=== PATIENT | male | born 1960 | race Caucasian/White ===

== ENCOUNTER → 2016-06-12 | Outpatient (REF) | payer MEDICARE ==
[~2016-06-12] MED LIST: /WARF25TA; ACET65TA; COUM10TA OR; ENOX40SY SC; FLECTOR; FLEXERIL; LISIPOW PO; LODINE PO; OMEP20TA7 OR; PRIL20CA; PRIN10TA; SERTRALINE PO; TYLETAB3; TYLETAB3 PO; ZOLO100T
[2016-06-12 13:00] LABS: BASO % 0.8 % (0.0-1.0); EOS # 0.1 K/mm3 (0.0-0.50); LARGE UNSTAINED CELL # 0.1 K/mm3 (0.0-0.4); LARGE UNSTAINED CELL % 1.4 % (0.0-4.0); LYMPH # 1.1 K/mm3 (1.5-4.5); LYMPH % 18.8 % (24.0-44.0); MEAN CORPUSCULAR HGB CONC 35.5 g/dl (32.0-36.5); MEAN CORPUSCULAR VOLUME 93.1 fl (80.0-96.0); MONO # 0.3 K/mm3 (0.0-0.8); MONO % 6.2 % (0.0-5.0); NEUTROPHILS % 71.9 % (36.0-66.0); PLATELET COUNT, AUTOMATED 132 k/mm3 (150-450); WHITE BLOOD COUNT 5.6 K/mm3 (4.0-10.0)
[2016-06-12 13:12] LABS: ALBUMIN/GLOBULIN RATIO 1.21 (1.00-1.93); ALKALINE PHOSPHATASE 90 U/L (45-117); ALT/SGPT 26 U/L (12-78); ANION GAP 10 MEQ/L (8-16); AST/SGOT 20 U/L (15-37); BILIRUBIN,TOTAL 0.5 MG/DL (0.2-1.0); BLOOD UREA NITROGEN 16 MG/DL (7-18); CALCIUM LEVEL 8.9 MG/DL (8.5-10.1); CARBON DIOXIDE LEVEL 28 MEQ/L (21-32); CHLORIDE LEVEL 100 MEQ/L (98-107); CHOLESTEROL LEVEL 124 MG/DL (<200); GLOMERULAR FILTRATION RATE > 60.0 (>56); GLUCOSE, FASTING 94 MG/DL (70-105); POTASSIUM SERUM 4.1 MEQ/L (3.5-5.1); SODIUM LEVEL 138 MEQ/L (136-145); TOTAL PROTEIN 7.3 GM/DL (6.4-8.2); TRIGLYCERIDES LEVEL 118 MG/DL (<150)
== END ==
LOC: M SFHCADAM 10:04
PROVIDERS: ATTEND Physician Assistant Medical
DX: I10 Essential (primary) hypertension (principal); E78.1 Pure hyperglyceridemia; E03.9 Hypothyroidism, unspecified; E55.9 Vitamin D deficiency, unspecified

== ENCOUNTER 2016-07-05 18:27 | Inpatient (IN) | payer MEDICARE ==
[~2016-07-05] VITALS: Ht 185.4 cm; Wt 102.1 kg
[~2016-07-05 18:27] MED LIST changes: -AUGM875T27 PO; -COUM1TAB17 PO; -LEVO25TA5 PO; -LEVO88TA24 PO; -LISI10TA2 PO; -OMEP20CA3 PO; -OMEP40CA2 PO; -SERT-138 PO; -TYLETAB15 PO; -VITA100037 PO; -VITA100066 PO
[2016-07-05] MEDS ORDERED: LEVO25TA5 PO (18:37)
[2016-07-05] MEDS ORDERED: OMEP40CA2 PO (18:37)
[2016-07-05] MEDS ORDERED: VITA100037 PO (18:37)
[2016-07-05] MEDS ORDERED: TYLETAB15 PO ×2 (18:37→19:28)
[2016-07-05] MEDS ORDERED: MORPHINE 4 MG/ML 1ML SYRINGE IV ONE (19:00)
[2016-07-05] MEDS ORDERED: ONDANSETRON 4MG/2ML VIAL (J2405) IV ONE (19:00)
[2016-07-05] MEDS ORDERED: LEVO88TA24 PO (19:26)
[2016-07-05] MEDS ORDERED: VITA100066 PO (19:28)
[2016-07-05] MEDS ORDERED: AUGM875T27 PO (19:28)
[2016-07-05] MEDS ORDERED: SERT-138 PO (19:28)
[2016-07-05] MEDS ORDERED: OMEP20CA3 PO (19:28)
[2016-07-05] MEDS ORDERED: LISI10TA2 PO (19:28)
[2016-07-05 19:34] LABS: BASO % 0.4 % (0.0-1.0); EOS % 0.6 % (0.0-3.0); LARGE UNSTAINED CELL # 0.1 K/mm3 (0.0-0.4); LARGE UNSTAINED CELL % 1.6 % (0.0-4.0); LYMPH % 15.2 % (24.0-44.0); MEAN CORPUSCULAR HEMOGLOBIN 34.1 pg (27.0-33.0); MEAN CORPUSCULAR HGB CONC 36.3 g/dl (32.0-36.5); MONO # 0.4 K/mm3 (0.0-0.8); MONO % 5.6 % (0.0-5.0); NEUTROPHILS # 4.9 K/mm3 (1.8-7.7); NEUTROPHILS % 76.5 % (36.0-66.0); PLATELET COUNT, AUTOMATED 131 k/mm3 (150-450); WHITE BLOOD COUNT 6.4 K/mm3 (4.0-10.0)
[2016-07-05 19:56] LABS: ANION GAP 8 MEQ/L (8-16); BLOOD UREA NITROGEN 11 MG/DL (7-18); CARBON DIOXIDE LEVEL 30 MEQ/L (21-32); CHLORIDE LEVEL 101 MEQ/L (98-107); CREATININE FOR GFR 1.09 MG/DL (0.70-1.30); GLOMERULAR FILTRATION RATE > 60.0 (>56); GLUCOSE, FASTING 96 MG/DL (70-105); POTASSIUM SERUM 4.4 MEQ/L (3.5-5.1); SODIUM LEVEL 139 MEQ/L (136-145)
[2016-07-05] MEDS ORDERED: ACETAMINOPHEN TAB 650MG DOSE (2X325MG) PO PRN (20:00)
[2016-07-05] MEDS ORDERED: ONDANSETRON 4MG/2ML VIAL (J2405) IV PRN (20:00)
[2016-07-05] MEDS: ENOXAPARIN 100MG/1ML SYRINGE (J1650) SC SCH (20:50)
[2016-07-05 22:05] VITALS: BP 151/96
[2016-07-06] MEDS: ACETAMINOPH W/CODEINE #3 TAB UD PO PRN ×4 (00:43→16:58)
[2016-07-06] MEDS: LEVOTHYROXINE 0.088 MG TAB (88 MCG) PO SCH (06:50)
[2016-07-06 07:07] LABS: MEAN CORPUSCULAR HEMOGLOBIN 32.8 pg (27.0-33.0); MEAN CORPUSCULAR HGB CONC 35.1 g/dl (32.0-36.5); MEAN CORPUSCULAR VOLUME 93.6 fl (80.0-96.0); RED CELL DISTRIBUTION WIDTH 13.1 % (11.5-14.5)
--- NOTE | 2016-07-06 07:16 | IPNPDOC ---
Text Note Date of Service The patient was seen on 07/05/16. NOTE Briefly, this is a 56-year-old male with a past medical history of hypertension , GERD, osteoarthritis, hypothyroidism, and DVT/PE in September 2011 who presented initially to his primary care provider with a chief complaint of right upper extremity swelling and pain. The patient subsequently did have an ultrasound of the extremity done as an outpatient and this revealed a deep venous thrombosis. The patient was sent to the emergency department for further evaluation and management. At this time, the patient states that his right upper extremity has gotten progressively swollen and tender over the last few weeks. He denies any trauma to the arm or any other acute complaint. V/S: B/P: 125/92, HR: 88, RR: 66, O2: 99% on RA General: Awake, alert, oriented Head: Normocephalic, atraumatic Neck: No JVD CVS: Normal S1, S2 Pulmonary: There to auscultation bilaterally Abd: Soft, nontender, nondistended Extremities: Right upper extremity noted to be swollen extending from the proximal aspect of the forearm. Mild tenderness to deep palpation. Neurovascularly intact distally A/P RUE DVT Started on Lovenox SC BID Hypothyroidism Cont Levothyroxine GERD Cont PPI HTN, stable Cont current regimen Patient will be admitted to Dr. Malin's service. Please refer to the HPI, which will be uploaded shortly for further details. VS,Fishbone, I+O VS, Fishbone, I+O Laboratory Tests 07/05/16 19:17 Calcium Level 9.0, Red Blood Count 4.66, Mean Corpuscular Volume 94.0, Mean Corpuscular Hemoglobin 34.1 H, Mean Corpuscular Hemoglobin Concent 36.3, Red Cell Distribution Width 13.0, Neutrophils (%) (Auto) 76.5 H, Lymphocytes (%) ( Auto) 15.2 L, Monocytes (%) (Auto) 5.6 H, Eosinophils (%) (Auto) 0.6, Basophils (%) (Auto) 0.4, Neutrophils # (Auto) 4.9, Lymphocytes # (Auto) 1.0 L, Monocytes # (Auto) 0.4, Eosinophils # (Auto) 0.0, Basophils # (Auto) 0.0 Vital Signs Date Time Temp Pulse Resp B/P Pulse Ox O2 Delivery O2 Flow Rate FiO2 07/06/16 06:51 18 07/05/16 22:05 97.9 57 151/96 97 Room Air I&O- Last 24 Hours up to 6 AM 07/06/16 06:00 Intake Total 960 ml Output Total 350 ml Balance 610 ml SONI GODWIN MD Jul 06, 2016 07:16 SONI GODWIN MD Jul 06, 2016 07:16
[2016-07-06 07:18] LABS: ANION GAP 8 MEQ/L (8-16); BLOOD UREA NITROGEN 12 MG/DL (7-18); CALCIUM LEVEL 8.1 MG/DL (8.5-10.1); CARBON DIOXIDE LEVEL 25 MEQ/L (21-32); CHLORIDE LEVEL 106 MEQ/L (98-107); CREATININE FOR GFR 1.09 MG/DL (0.70-1.30); GLOMERULAR FILTRATION RATE > 60.0 (>56); GLUCOSE, FASTING 90 MG/DL (70-105); POTASSIUM SERUM 3.8 MEQ/L (3.5-5.1); SODIUM LEVEL 139 MEQ/L (136-145)
[2016-07-06 08:00] VITALS: BP 123/75
--- NOTE | 2016-07-06 08:58 | IPNPDOC ---
Subjective Date Seen The patient was seen on 07/06/16. Subjective Chief Complaint/HPI The patient is a 56-year-old male admitted with a reason for visit of DVT. Events since last encounter Pt this morning c/o loose stools, watery, denies abdominal pain, bloating. Has been on Augmentin per UC for URI/bronchitis and loose stools started a few days after starting the medication. He took a dose yesterday, has only one dose left to take of a 10 day regimen. He is having mtp stools daily. General: Denies: Fatigue Constitutional: Denies: Chills, Fever Skin: Denies: Lesions, Rash Pulmonary: Denies: Cough, Dyspnea Cardiovascular: Denies: Chest Pain, Palpitations Gastrointestinal: Reports: Diarrhea, Denies: Nausea, Vomiting Genitourinary: Denies: Dysuria Musculoskeletal: Reports: Other Symptoms (Pain, redness to RUE, antecubital.) Objective Physical Examination General Exam: Positive: Alert, No Acute Distress ENT Exam: Positive: Mucous membr. moist/pink Chest Exam: Positive: Clear to auscultation, Normal air movement Heart Exam: Positive: Normal S1, Normal S2, Rate Normal Abdomen Exam: Positive: Normal bowel sounds, Soft, Negative: Tenderness Extremity Exam: Positive: Tenderness (RUE ant arm with redness, pain, mild swelling), Negative: Edema (BLE) Psych Exam: Positive: Mental status NL, Mood NL Assessment /Plan Problems (1) DVT (deep venous thrombosis) Status: Acute Discussed With: Patient Problem Specific Plan: Monitor Clinically, Repeat Labs Problem Text: US confirms DVT of distal, mid, prox basilic vein and portion of the axillary - Extensive DVT- prior h/o of DVT/PE in 09/27 with Neg hypercoag work up, treated with blood thinners x 1. Currently started on lovenox SQ BID, I would recommend Coumadin for treatment buttermaker, will address with attending. hypercoag work up ordered on admission, results pending. (2) Hypertension Status: Chronic Response to Treatment: Stable Problem Specific Plan: Monitor Clinically Problem Text: Cont HD lisinopril/HCTZ. (3) Right arm pain Status: Chronic Response to Treatment: Stable Problem Specific Plan: Monitor Clinically Problem Text: Assoc with traumatic fall, On Tyl #4 at home, not available inpt , using Tyl # 3. (4) Alcohol abuse Status: Chronic Response to Treatment: Stable Problem Specific Plan: Monitor Clinically Problem Text: H/o abuse, currently drinking 2-3 beers nightly, counseled on symptoms assoc with withdrawal. (5) MDD (major depressive disorder) Status: Chronic Response to Treatment: Stable Problem Specific Plan: Monitor Clinically Problem Text: Cont Zoloft 100 mg daily. (6) Diarrhea Status: Acute Problem Specific Plan: Monitor Clinically Problem Text: Pt completed Augmentin, GI panel pending, I suspect the cause of his loose stools are assoc with the medication. Await results, consider Immodium if results Neg. Plan/VTE VTE Prophylaxis Ordered?: Yes Plan Family Medicine Attending Note: Patient seen and examined; I d/w THERESA Cruz and I agree with her note above. No further diarrhea since receiving immodium ; GI panel is negative. Will restart coumadin today and plan to discharge home tomorrow with coumadin and lovenox until he is therapeutic x2 days. (KES) VS, I&O, 24H, Fishbone Vital Signs/I&O Vital Signs Date Time Temp Pulse Resp B/P Pulse Ox O2 Delivery O2 Flow Rate FiO2 07/06/16 07:21 18 07/05/16 22:05 97.9 57 151/96 97 Room Air I&O- Last 24 Hours up to 6 AM 07/06/16 06:00 Intake Total 960 ml Output Total 350 ml Balance 610 ml Laboratory Data 24H LABS Laboratory Tests 2 07/05/16 19:17: Activated Partial Thromboplast Time 25.8L, Anion Gap 8, White Blood Count 6.4, Red Blood Count 4.66, Hemoglobin 15.9, Hematocrit 43.8, Mean Corpuscular Volume 94.0, Mean Corpuscular Hemoglobin 34.1H, Mean Corpuscular Hemoglobin Concent 36.3, Red Cell Distribution Width 13.0, Platelet Count 131L, Neutrophils (%) ( Auto) 76.5H, Lymphocytes (%) (Auto) 15.2L, Monocytes (%) (Auto) 5.6H, Eosinophils (%) (Auto) 0.6, Basophils (%) (Auto) 0.4, Neutrophils # (Auto) 4.9, Lymphocytes # (Auto) 1.0L, Monocytes # (Auto) 0.4, Eosinophils # (Auto) 0.0, Basophils # (Auto) 0.0, Blood Urea Nitrogen 11, Creatinine 1.09, Sodium Level 139, Potassium Level 4.4, Chloride Level 101, Carbon Dioxide Level 30, Calcium Level 9.0, Glomerular Filtration Rate > 60.0, Large Unclassified Cells # 0.1, Large Unclassified Cells % 1.6, Prothromb Time International Ratio 1.00, Prothrombin Time 13.3 07/06/16 06:38: Anion Gap 8, Blood Urea Nitrogen 12, Creatinine 1.09, Sodium Level 139, Potassium Level 3.8, Chloride Level 106, Carbon Dioxide Level 25, Calcium Level 8.1L, Glomerular Filtration Rate > 60.0, Magnesium Level 2.0 CBC/BMP Laboratory Tests 07/05/16 19:17 Calcium Level 9.0, Red Blood Count 4.66, Mean Corpuscular Volume 94.0, Mean Corpuscular Hemoglobin 34.1 H, Mean Corpuscular Hemoglobin Concent 36.3, Red Cell Distribution Width 13.0, Neutrophils (%) (Auto) 76.5 H, Lymphocytes (%) ( Auto) 15.2 L, Monocytes (%) (Auto) 5.6 H, Eosinophils (%) (Auto) 0.6, Basophils (%) (Auto) 0.4, Neutrophils # (Auto) 4.9, Lymphocytes # (Auto) 1.0 L, Monocytes # (Auto) 0.4, Eosinophils # (Auto) 0.0, Basophils # (Auto) 0.0 07/06/16 06:38 Calcium Level 8.1 L, Red Blood Count 4.38, Mean Corpuscular Volume 93.6, Mean Corpuscular Hemoglobin 32.8, Mean Corpuscular Hemoglobin Concent 35.1, Red Cell Distribution Width 13.1 Microbiology Microbiology 07/06/16 Gastrointestinal Tract Panel (PCR), Received Pending RAN PARRA PA-C Jul 06, 2016 08:58 ROCK WILSON MD Jul 06, 2016 16:46
[2016-07-06] MEDS: hydroCHLOROthiazide 12.5 MG CAPSULE PO SCH (09:55)
[2016-07-06] MEDS: LISINOPRIL 10 MG TAB PO SCH (09:55)
[2016-07-06] MEDS: OMEPRAZOLE 20 MG CAP PO SCH (09:55)
[2016-07-06] MEDS: SERTRALINE 100 MG TAB PO SCH (09:56)
[2016-07-06] MEDS: VITAMIN D 1,000 INTERNATIONAL UNITS TABLET PO SCH (09:56)
[2016-07-06] MEDS: ENOXAPARIN 100MG/1ML SYRINGE (J1650) SC SCH ×2 (09:56→21:29)
[2016-07-06] MEDS ORDERED: LOPERAMIDE 2 MG CAP PO PRN (13:45)
[2016-07-06 16:00] VITALS: BP 148/90
[2016-07-06] MEDS ORDERED: WARFARIN SOD 5 MG TAB PO SCH (17:00)
[2016-07-06 19:30] VITALS: BP 124/78
--- NOTE | 2016-07-06 20:16 | HPEPDOC ---
General Date of Admission Jul 05, 2016 at 19:53 Primary Care Physician: RAN PARRA PA-C Attending Physician: ROCK MALIN MD Chief Complaint The patient is a 56-year-old male admitted with a reason for visit of DVT. Source: Patient Exam Limitations: No limitations History of Present Illness 56-year-old male with a past medical history of hypertension, GERD, osteoarthritis, hypothyroidism, and DVT/PE in September 2011 who presented initially to his primary care provider with a chief complaint of right upper extremity swelling and pain. The patient subsequently did have an ultrasound of the extremity done as an outpatient and this revealed a deep venous thrombosis. The patient was sent to the emergency department for further evaluation and management. At this time, the patient states that his right upper extremity has gotten progressively swollen and tender over the last few weeks. He denies any trauma to the arm or any other acute complaint. He also denies any fevers, chills, chest pain, shortness of breath, palpitations, abdominal pain, or any nausea/vomiting/diarrhea. In the ER, a hypercoagulable workup was ordered, and the patient has been started on subcutaneous Lovenox BID at this time. The patient will be admitted under the service of Dr. Malin of the [facility], we will begin to follow the patient on 07/06/16 at 7 AM. Home Medications Scheduled (Tylenol/Codeine #4 300-60 mg) 1 Tab Tab 1 TAB PO QID (Reported) (Lisinopril/Hydrochlorothi 10-12.5 mg) 1 Tab Tab 1 TAB PO DAILY (Reported) Amoxicillin/Clavulanate Potas (Augmentin 875-125 mg) 1 Tab Tab 875 MG PO BID ( Reported) FILLED 06/27/16 FOR 10 DAYS Cholecalciferol (Vitamin D) 1,000 Unit Tab 1,000 UNIT PO DAILY (Reported) Levothyroxine Sodium (Levoxyl) 88 Mcg Tab 88 MCG PO DAILY (Reported) TAKES WHEN HE GETS UP IN THE NIGHT TO USE RESTROOM Omeprazole (Omeprazole) 20 Mg Cap 20 MG PO DAILY (Reported) Sertraline HCl (Sertraline HCl) 100 Mg Tab 100 MG PO DAILY (Reported) Allergies Coded Allergies: No Known Allergies (Verified Allergy, Unknown, 04/07/09) Past Medical History Medical History As noted in HPI. Surgical History Right hip total arthroplasty, repair of tendons and right arm after a fall and traumatic injury in 1998. Family History FATHER: 82 YRS, COPD MOTHER: 70 YRS, LUNG CANCER, DM SIBLINGS: BROTHER - DM2 SISTER COPD SON(S): ALIVE, ESTRANGED DAUGHTER(S): ALIVE, ESTRANGED 1 BROTHER(S) , 2 SISTER(S) . 1 SON(S) , 1 DAUGHTER(S) . NO FH COLORECTAL, PROSTATE CA. Social History * Smoker: former Smoker Alcohol: occationally Drugs: denies Review of Symptoms Other systems 10 point review of systems negative unless otherwise specified in HPI. Physical Examination General Exam: Positive: Alert, No Acute Distress ENT Exam: Positive: Atraumatic, Mucous membr. moist/pink Chest Exam: Positive: Clear to auscultation, Normal air movement Heart Exam: Positive: Normal S1, Normal S2, Rate Normal Abdomen Exam: Positive: Normal bowel sounds, Soft, Negative: Tenderness Extremity Exam: Positive: Edema (BLE), Tenderness (Right upper extremity noted to be swollen extending from the proximal aspect of the forearm. Mild tenderness to deep palpation. Neurovascularly intact distally) Psych Exam: Positive: Mental status NL, Mood NL, Oriented x 3 Vital Signs Vital Signs Date Time Temp Pulse Resp B/P Pulse Ox O2 Delivery O2 Flow Rate FiO2 07/06/16 17:50 18 07/06/16 16:58 Room Air 07/06/16 16:00 97.6 102 148/90 97 Laboratory Data Labs 24H Laboratory Tests 2 07/06/16 06:38: Anion Gap 8, Blood Urea Nitrogen 12, Creatinine 1.09, Sodium Level 139, Potassium Level 3.8, Chloride Level 106, Carbon Dioxide Level 25, Calcium Level 8.1L, Glomerular Filtration Rate > 60.0, Magnesium Level 2.0 CBC/BMP Laboratory Tests 07/06/16 06:38 Calcium Level 8.1 L, Red Blood Count 4.38, Mean Corpuscular Volume 93.6, Mean Corpuscular Hemoglobin 32.8, Mean Corpuscular Hemoglobin Concent 35.1, Red Cell Distribution Width 13.1 Microbiology Microbiology 07/06/16 Gastrointestinal Tract Panel (PCR) - Final, Complete Plan / VTE VTE Prophylaxis Ordered?: Yes (On Lovenox SC BID for DVT) Plan Plan RUE DVT U/S of the RUE notable for DVT of distal, mid, prox basilic vein and portion of the axillary Of note, the patient did have a PE/DVT in September 2011 at which time he was started on Coumadin for a one-year duration, evidently a hypercoagulable workup at that time was noted to be negative. Hypercoagulable workup has been ordered here in the ER Started on Lovenox SC BID, we will defer the choice of long-term anticoagulation to the patient's primary team We will continue to monitor his condition here Hypothyroidism Cont Levothyroxine GERD Cont PPI HTN, stable Cont current regimen Depression Continue Zoloft DVT prophylaxis-already on Lovenox subcutaneously twice a day for treatment of DVT Patient will be admitted to Dr. Malin's service, who will begin to follow the patient on 07/06/16 at 7 AM. SONI GODWIN MD Jul 06, 2016 20:16
[2016-07-07] VITALS: BP 120/79
[2016-07-07] MEDS: ACETAMINOPH W/CODEINE #3 TAB UD PO PRN ×2 (00:15→08:36)
[2016-07-07] MEDS: LEVOTHYROXINE 0.088 MG TAB (88 MCG) PO SCH (06:25)
[2016-07-07] MEDS: OMEPRAZOLE 20 MG CAP PO SCH (06:29)
[2016-07-07 07:31] LABS: INR 0.93
[2016-07-07 07:40] LABS: MEAN CORPUSCULAR HEMOGLOBIN 32.7 pg (27.0-33.0); MEAN CORPUSCULAR HGB CONC 34.7 g/dl (32.0-36.5); RED CELL DISTRIBUTION WIDTH 13.2 % (11.5-14.5); WHITE BLOOD COUNT 5.4 K/mm3 (4.0-10.0)
[2016-07-07 08:00] VITALS: BP 109/70
[2016-07-07 08:02] LABS: ANION GAP 8 MEQ/L (8-16); BLOOD UREA NITROGEN 11 MG/DL (7-18); CALCIUM LEVEL 8.3 MG/DL (8.5-10.1); CARBON DIOXIDE LEVEL 26 MEQ/L (21-32); CHLORIDE LEVEL 104 MEQ/L (98-107); CREATININE FOR GFR 1.01 MG/DL (0.70-1.30); GLOMERULAR FILTRATION RATE > 60.0 (>56); GLUCOSE, FASTING 102 MG/DL (70-105); POTASSIUM SERUM 3.6 MEQ/L (3.5-5.1); SODIUM LEVEL 138 MEQ/L (136-145)
[2016-07-07] MEDS ORDERED: COUM1TAB17 PO (08:16)
[2016-07-07 08:28] VITALS: BP 109/70
[2016-07-07] MEDS: LISINOPRIL 10 MG TAB PO SCH (08:28)
[2016-07-07] MEDS: hydroCHLOROthiazide 12.5 MG CAPSULE PO SCH (08:29)
[2016-07-07] MEDS: SERTRALINE 100 MG TAB PO SCH (08:29)
[2016-07-07] MEDS: VITAMIN D 1,000 INTERNATIONAL UNITS TABLET PO SCH (08:29)
[2016-07-07] MEDS: ENOXAPARIN 100MG/1ML SYRINGE (J1650) SC SCH (08:30)
[2016-07-07] MEDS ORDERED: INFLUENZA QUADRIVALENT PF VACCINE 0.5ML SYRINGE/VIAL (90686) IM SCH (09:00)
--- NOTE | 2016-07-07 09:18 | DSES ---
DATE OF ADMISSION: 07/05/2016 DATE OF DISCHARGE: 07/07/2016 PRIMARY CARE PROVIDER: THERESA Cruz ATTENDING PHYSICIAN: Dr. Marjorie Malin HISTORY: This is a 56-year-old male patient who presented to my office at [facility] in [place], [place] with his and showed me his right upper arm, which appeared red, swollen and inflamed with a reported history that this had been red, swollen and inflamed for approximately two weeks and worsening at that time. He was sent for a stat ultrasound, as he was not willing to go through the emergency room for further evaluation. This ultrasound confirmed a suspicion of a right upper extremity deep vein thrombosis (DVT) and the patient was subsequently advised to go to the emergency room for admission. He denied any chest pain, any shortness of breath, nausea, vomiting, or diarrhea. He otherwise is asymptomatic. He does have a previous history of a DVT in that same right upper extremity back in September 2011. This was associated with a pulmonary embolus at that time as well. The patient was admitted to the hospital. He was started on therapeutic doses of Lovenox 100 mg subcutaneously twice a day. He was started on Coumadin last night, as he has been on this in the past and tolerated it well. Otherwise, he has remained medically stable. He did have a couple of episodes of loose stools, although he just completed Augmentin. GI panel was obtained, which was negative. He has not taken any further doses of the Augmentin during his hospitalization and the stools are improved this morning, according to the patient. He is eager to return home. We have sent in Lovenox and verified insurance coverage. I will see him in the office on Sunday for Coumadin check. We have reviewed the risks and benefits associated with Coumadin, as well as the need for treatment and the risks associated with lack of treatment. He expressed understanding. He feels comfortable administering the Lovenox doses for as long as needed. Nursing is going to perform additional teaching this morning. DISCHARGE DIAGNOSES: 1. Right upper extremity deep vein thrombosis (DVT). 2. Hypertension. 3. Chronic right arm pain. 4. History of alcohol abuse. 5. Major depressive disorder. 6. Diarrhea. DISCHARGE MEDICATIONS: - Coumadin 5 mg daily - Lovenox 100 mg subcutaneously twice a day - Lisinopril/hydrochlorothiazide 12/28.5 one tablet daily - omeprazole 20 mg daily - sertraline 100 mg daily - Levoxyl 88 mcg daily - vitamin D 1000 units daily - Tylenol with codeine #4 one tablet four times daily as needed for pain DISCHARGE PLAN: Followup with Coumadin check, PT/INR on 07/10/2016. His activity should be as tolerated. Diet should be regular. MTDD
== END 2016-07-07 09:30 | disposition home or self-care (01) | DRG 301 ==
LOC: M ED 19:22 → M ED INP 19:53 → M PED 22:06
PROVIDERS: ADMIT Internal Medicine; ATTEND Family Medicine
DX: I82.611 Acute embolism and thrombosis of superficial veins of right upper extremity (principal); I10 Essential (primary) hypertension; K21.9 Gastro-esophageal reflux disease without esophagitis; E03.9 Hypothyroidism, unspecified; I82.A11 Acute embolism and thrombosis of right axillary vein; F32.9 Major depressive disorder, single episode, unspecified; R19.7 Diarrhea, unspecified; F10.10 Alcohol abuse, uncomplicated; Z79.01 Long term (current) use of anticoagulants; Z79.899 Other long term (current) drug therapy; Z86.718 Personal history of other venous thrombosis and embolism; Z86.711 Personal history of pulmonary embolism; Z83.3 Family history of diabetes mellitus; Z80.1 Family history of malignant neoplasm of trachea, bronchus and lung; Z83.6 Family history of other diseases of the respiratory system; Z80.42 Family history of malignant neoplasm of prostate; Z87.891 Personal history of nicotine dependence

== ENCOUNTER → 2016-07-05 | Outpatient (CLI) | payer MEDICARE ==
[~2016-07-05] MED LIST changes: +AUGM875T27 PO; +COUM1TAB17 PO; +LEVO25TA5 PO; +LEVO88TA24 PO; +LISI10TA2 PO; +OMEP20CA3 PO; +OMEP40CA2 PO; +SERT-138 PO; +TYLETAB15 PO; +VITA100037 PO; +VITA100066 PO
--- NOTE | 2016-07-05 17:54 | REP ---
DEEP VENOUS ULTRASONOGRAPHY RIGHT UPPER EXTREMITY: REASON: Pain and swelling. TECHNIQUE: Multiple ultrasonographic images of the deep venous structures of the right upper extremity were obtained in the longitudinal and transverse scan planes along with color Doppler imaging and Doppler interrogative techniques with augmentation. Abnormal echogenic material is seen in the proximal, mid, and distal basilic vein including a portion of the axillary vein. IMPRESSION: There is evidence of a deep vein thrombosis of the right upper extremity. Signed by Saeed Davis DO 07/07/2016 03:42 P
== END ==
LOC: M RAD 16:20
PROVIDERS: ATTEND Physician Assistant Medical
DX: M79.601 Pain in right arm (principal)

== ENCOUNTER → 2016-12-06 | Outpatient (REF) | payer MEDICARE ==
[~2016-12-06] MED LIST changes: +AUGM875T28 PO; +COUM1TAB17 PO; +LEVO25TA5 PO; +LEVO88TA24 PO; +LISI10TA2 PO; +OMEP20CA3 PO; +OMEP40CA2 PO; +SERT-138 PO; +TYLETAB15 PO; +VITA100066 PO; +VITA100067 PO
[2016-12-06 13:57] LABS: FREE T4 1.15 NG/DL (0.76-1.46)
== END ==
LOC: M SFHCADAM 08:22
PROVIDERS: ATTEND Physician Assistant Medical
DX: E03.9 Hypothyroidism, unspecified (principal)

== ENCOUNTER → 2017-02-12 | Outpatient (REF) | payer MEDICARE ==
[2017-02-12 13:07] LABS: BASO # 0.1 10^3/uL (0.0-0.2); BASO % 1.1 % (0.0-1.0); EOS # 0.1 10^3/uL (0.0-0.50); EOS % 1.5 % (0.0-3.0); IMMATURE GRANULOCYTE % 1.7 % (0-0); LYMPH # 1.4 10^3/uL (1.5-4.5); LYMPH % 26.3 % (24.0-44.0); MEAN CORPUSCULAR HEMOGLOBIN 32.8 pg (27.0-33.0); MEAN CORPUSCULAR HGB CONC 34.3 g/dl (32.0-36.5); MEAN CORPUSCULAR VOLUME 95.5 fl (80.0-96.0); MONO # 0.4 10^3/uL (0.0-0.8); MONO % 7.4 % (0.0-5.0); NEUTROPHILS # 3.3 10^3/uL (1.8-7.7); PLATELET COUNT, AUTOMATED 149 10^3/uL (150-450); RED CELL DISTRIBUTION WIDTH 13.2 % (11.5-14.5); WHITE BLOOD COUNT 5.4 10^3/uL (4.0-10.0)
[2017-02-12 13:30] LABS: ALBUMIN 3.8 GM/DL (3.2-5.2); ALBUMIN/GLOBULIN RATIO 1.27 (1.00-1.93); ALKALINE PHOSPHATASE 97 U/L (45-117); ALT/SGPT 18 U/L (12-78); ANION GAP 7 MEQ/L (8-16); AST/SGOT 14 U/L (7-37); BILIRUBIN,TOTAL 0.3 MG/DL (0.2-1.0); BLOOD UREA NITROGEN 17 MG/DL (7-18); CARBON DIOXIDE LEVEL 28 MEQ/L (21-32); CHLORIDE LEVEL 106 MEQ/L (98-107); CHOLESTEROL LEVEL 131 MG/DL (<200); CREATININE FOR GFR 1.13 MG/DL (0.70-1.30); FREE T4 0.99 NG/DL (0.76-1.46); GLOMERULAR FILTRATION RATE > 60.0 (>56); GLUCOSE, FASTING 94 MG/DL (70-105); POTASSIUM SERUM 4.7 MEQ/L (3.5-5.1); SODIUM LEVEL 141 MEQ/L (136-145); TOTAL PROTEIN 6.8 GM/DL (6.4-8.2); TRIGLYCERIDES LEVEL 104 MG/DL (<150)
== END ==
LOC: M SFHCADAM 08:57
PROVIDERS: ATTEND Physician Assistant Medical
DX: F32.9 Major depressive disorder, single episode, unspecified (principal); E78.1 Pure hyperglyceridemia; E55.9 Vitamin D deficiency, unspecified; D69.6 Thrombocytopenia, unspecified; Z79.899 Other long term (current) drug therapy

== ENCOUNTER → 2017-02-13 | Outpatient (REF) | payer MEDICARE ==
[2017-02-13 12:51] LABS: MEAN CORPUSCULAR HEMOGLOBIN 32.5 pg (27.0-33.0); MEAN CORPUSCULAR HGB CONC 35.2 g/dl (32.0-36.5); MEAN CORPUSCULAR VOLUME 92.1 fl (80.0-96.0); PLATELET COUNT, AUTOMATED 144 10^3/uL (150-450); RED CELL DISTRIBUTION WIDTH 13.1 % (11.5-14.5); WHITE BLOOD COUNT 5.5 10^3/uL (4.0-10.0)
[2017-02-13 13:24] LABS: PERCENT SATURATION 19.6 % (19.7-50.0)
== END ==
LOC: M LAB REF 12:04 → M SFHCADAM 12:04
PROVIDERS: ATTEND Physician Assistant Medical
DX: D64.9 Anemia, unspecified (principal); F32.9 Major depressive disorder, single episode, unspecified; E78.1 Pure hyperglyceridemia; E55.9 Vitamin D deficiency, unspecified

== ENCOUNTER → 2017-03-26 | Outpatient (CLI) | payer MEDICARE | LOC: M ADAMS 15:53 | DX: M25.552 Pain in left hip (principal); M25.551 Pain in right hip; M25.78 Osteophyte, vertebrae; M41.26 Other idiopathic scoliosis, lumbar region; Z96.641 Presence of right artificial hip joint | CPT/HCPCS: 72110 ==

== ENCOUNTER → 2017-07-30 | Outpatient (CLI) | payer MEDICARE ==
[2017-07-30 10:06] LABS: BASO % 0.6 % (0.0-1.0); EOS # 0.1 10^3/uL (0.0-0.50); HEMOGLOBIN 14.3 g/dl (13.5-17.5); IMMATURE GRANULOCYTE % 1.9 % (0-3.0); LYMPH # 0.9 10^3/uL (1.5-4.5); LYMPH % 19.2 % (24.0-44.0); MEAN CORPUSCULAR HEMOGLOBIN 32.6 pg (27.0-33.0); MEAN CORPUSCULAR HGB CONC 34.9 g/dl (32.0-36.5); MEAN CORPUSCULAR VOLUME 93.6 fl (80.0-96.0); MONO # 0.4 10^3/uL (0.0-0.8); MONO % 8.1 % (0.0-5.0); NEUTROPHILS # 3.4 10^3/uL (1.8-7.7); NEUTROPHILS % 69.2 % (36.0-66.0); PLATELET COUNT, AUTOMATED 112 10^3/uL (150-450); RED BLOOD COUNT 4.38 10^6/uL (4.30-6.10); RED CELL DISTRIBUTION WIDTH 13.3 % (11.5-14.5); WHITE BLOOD COUNT 4.8 10^3/uL (4.0-10.0)
[2017-07-30 10:45] LABS: ALBUMIN 3.8 GM/DL (3.2-5.2); ALBUMIN/GLOBULIN RATIO 1.15 (1.00-1.93); ALKALINE PHOSPHATASE 97 U/L (45-117); ALT/SGPT 27 U/L (12-78); ANION GAP 8 MEQ/L (8-16); AST/SGOT 29 U/L (7-37); BILIRUBIN,TOTAL 0.5 MG/DL (0.2-1.0); BLOOD UREA NITROGEN 15 MG/DL (7-18); CARBON DIOXIDE LEVEL 26 MEQ/L (21-32); CHLORIDE LEVEL 106 MEQ/L (98-107); CHOLESTEROL LEVEL 121 MG/DL (<200); CHOLESTEROL RISK RATIO 1.406 (<5); CREATININE FOR GFR 0.98 MG/DL (0.70-1.30); FERRITIN 209 NG/ML (26-388); GLOMERULAR FILTRATION RATE > 60.0 (>56); GLUCOSE, FASTING 87 MG/DL (70-100); HDL CHOLESTEROL 86 MG/DL (>40); IRON (FE) 56 UG/DL (65-175); LDL CHOLESTEROL 26.6 MG/DL (<100); NON-HDL-C 35 MG/DL; PERCENT SATURATION 21.9 % (19.7-50.0); POTASSIUM SERUM 4.5 MEQ/L (3.5-5.1); SODIUM LEVEL 140 MEQ/L (136-145); TOTAL IRON BINDING CAPACITY 256 UG/DL (250-450); TOTAL PROTEIN 7.1 GM/DL (6.4-8.2); TRIGLYCERIDES LEVEL 42 MG/DL (<150)
== END ==
LOC: M LAB 09:27
DX: E55.9 Vitamin D deficiency, unspecified (principal); E78.1 Pure hyperglyceridemia; I10 Essential (primary) hypertension; D50.9 Iron deficiency anemia, unspecified
CPT/HCPCS: 83550

== ENCOUNTER → 2017-07-30 | Outpatient (REF) | payer MEDICARE | LOC: M SFHCADAM 07:31 | DX: E55.9 Vitamin D deficiency, unspecified (principal); I10 Essential (primary) hypertension; D50.9 Iron deficiency anemia, unspecified; E78.1 Pure hyperglyceridemia ==

== ENCOUNTER → 2018-08-02 | Outpatient (REF) | payer MEDICARE ==
[~2018-08-02] MED LIST changes: -/WARF25TA; +COUM1TAB18; -ENOX40SY SC; +LOVE1INJ SC
[2018-08-02 12:52] LABS: BASO % 0.6 % (0.0-1.0); EOS % 0.5 % (0.0-3.0); HEMATOCRIT 43.7 % (42.0-52.0); LYMPH # 0.8 10^3/uL (1.5-4.5); LYMPH % 12.9 % (24.0-44.0); MEAN CORPUSCULAR HEMOGLOBIN 33.3 pg (27.0-33.0); MEAN CORPUSCULAR HGB CONC 34.3 g/dl (32.0-36.5); MEAN CORPUSCULAR VOLUME 96.9 fl (80.0-96.0); MONO # 0.4 10^3/uL (0.0-0.8); MONO % 6.7 % (0.0-5.0); NEUTROPHILS # 4.9 10^3/uL (1.8-7.7); NEUTROPHILS % 77.7 % (36.0-66.0); PLATELET COUNT, AUTOMATED 130 10^3/uL (150-450); RED BLOOD COUNT 4.51 10^6/uL (4.30-6.10); WHITE BLOOD COUNT 6.3 10^3/uL (4.0-10.0)
[2018-08-02 13:23] LABS: ALBUMIN 3.8 GM/DL (3.2-5.2); ALT/SGPT 18 U/L (12-78); BILIRUBIN,TOTAL 0.5 MG/DL (0.2-1.0); BLOOD UREA NITROGEN 17 MG/DL (7-18); CALCIUM LEVEL 8.8 MG/DL (8.5-10.1); CARBON DIOXIDE LEVEL 27 MEQ/L (21-32); CHLORIDE LEVEL 103 MEQ/L (98-107); CHOLESTEROL LEVEL 130 MG/DL (<200); CHOLESTEROL RISK RATIO 1.604 (<5); CREATININE FOR GFR 1.06 MG/DL (0.70-1.30); FERRITIN 163 NG/ML (26-388); FREE T4 0.99 NG/DL (0.76-1.46); GLOMERULAR FILTRATION RATE > 60.0 (>56); GLUCOSE, FASTING 100 MG/DL (70-100); HDL CHOLESTEROL 81 MG/DL (>40); IRON (FE) 79 UG/DL (65-175); LDL CHOLESTEROL 41 MG/DL (<100); NON-HDL-C 49 MG/DL; POTASSIUM SERUM 5.5 MEQ/L (3.5-5.1); SODIUM LEVEL 135 MEQ/L (136-145); TOTAL 25(OH) VITAMIN D 25.2 NG/ML (30.0-100.0); TOTAL PROTEIN 7.1 GM/DL (6.4-8.2); TRIGLYCERIDES LEVEL 42 MG/DL (<150)
== END ==
LOC: M SFHCADAM 07:37
PROVIDERS: ATTEND Physician Assistant Medical
DX: M15.9 Polyosteoarthritis, unspecified (principal); I10 Essential (primary) hypertension; E78.1 Pure hyperglyceridemia; E55.9 Vitamin D deficiency, unspecified; K21.9 Gastro-esophageal reflux disease without esophagitis; D50.9 Iron deficiency anemia, unspecified
CPT/HCPCS: 80053; 80061; 82306; 82728; 83540; 84439; 84443; 85025; G0463

== ENCOUNTER 2018-11-19 23:37 | Inpatient (IN) | payer MEDICARE ==
[~2018-11-19] VITALS: Ht 185.4 cm; Wt 89.2 kg
[~2018-11-19 23:37] MED LIST changes: +LISI10TA15 PO; -LISI10TA2 PO; -OMEP20CA3 PO; +OMEP20CA4 PO
[2018-11-20 00:08] LABS: BASO # 0.1 10^3/uL (0.0-0.2); BASO % 0.7 % (0.0-1.0); EOS % 0.4 % (0.0-3.0); HEMATOCRIT 39.7 % (42.0-52.0); HEMOGLOBIN 13.5 g/dl (13.5-17.5); LYMPH # 1.9 10^3/uL (1.5-5.0); LYMPH % 20.2 % (24.0-44.0); MEAN CORPUSCULAR HEMOGLOBIN 31.8 pg (27.0-33.0); MEAN CORPUSCULAR VOLUME 93.4 fl (80.0-96.0); MONO # 0.7 10^3/uL (0.0-0.8); MONO % 7.1 % (0.0-5.0); NEUTROPHILS # 6.6 10^3/uL (1.5-8.5); PLATELET COUNT, AUTOMATED 160 10^3/uL (150-450); RED BLOOD COUNT 4.25 10^6/uL (4.30-6.10); WHITE BLOOD COUNT 9.4 10^3/uL (4.0-10.0)
[2018-11-20 00:18] LABS: D-DIMER QUANT 1980.3 ng/ml (<500)
[2018-11-20 00:33] LABS: INR 0.94; PROTHROMBIN TIME 12.3 SECONDS (11.8-14.0)
[2018-11-20 00:34] LABS: PARTIAL THROMBOPLASTIN TIME 25.6 SECONDS (25.0-38.4)
[2018-11-20 01:05] LABS: ALT/SGPT 24 U/L (12-78); BILIRUBIN,DIRECT < 0.1 MG/DL (0.0-0.2); BILIRUBIN,TOTAL 0.4 MG/DL (0.2-1.0); BLOOD UREA NITROGEN 19 MG/DL (7-18); CALCIUM LEVEL 8.7 MG/DL (8.5-10.1); CARBON DIOXIDE LEVEL 20 MEQ/L (21-32); CHLORIDE LEVEL 105 MEQ/L (98-107); CK-MB VALUE MASS 1.9 NG/ML (<3.6); CPK CREATINE PHOSPHOKINASE 196 U/L (39-308); CREATININE FOR GFR 1.21 MG/DL (0.70-1.30); ETHYL ALCOHOL (ETHANOL) 0.273 % (0.000-0.010); GLOMERULAR FILTRATION RATE > 60.0 (>56); GLUCOSE, FASTING 75 MG/DL (70-100); LIPASE 120 U/L (73-393); MB/CK RELATIVE INDEX 0.97 (< OR =4); POTASSIUM SERUM 5.4 MEQ/L (3.5-5.1); SODIUM LEVEL 136 MEQ/L (136-145); TOTAL PROTEIN 7.6 GM/DL (6.4-8.2); TROPONIN I < 0.02 NG/ML (< 0.10)
[2018-11-20] MEDS ORDERED: ISOVUE-370 76% 100ML VIAL (Q9967) As Ordered ONE (01:13)
[2018-11-20] MEDS ORDERED: NS 1,000 ML IV ONE ×2 (01:15→03:00)
--- NOTE | 2018-11-20 02:06 | REPVR ---
EXAM: CT Head Without Contrast EXAM DATE/TIME: 11/20/2018 1:06 AM CLINICAL HISTORY: 58 years old, male; Dizziness; Additional info: Syncope, chest pain, epigastric pain, pos ddimer TECHNIQUE: Imaging protocol: Computed tomography of the head without contrast. Radiation optimization: All CT scans at this facility use at least one of these dose optimization techniques: automated exposure control; mA and/or kV adjustment per patient size (includes targeted exams where dose is matched to clinical indication); or iterative reconstruction. COMPARISON: No relevant prior studies available. FINDINGS: Brain: There is slight prominence of the peripheral sulci. Ventricles: Normal. No ventriculomegaly. Bones/joints: Unremarkable. No acute fracture. Sinuses: Visualized sinuses are unremarkable. No fluid levels. Mastoid air cells: Poor pneumatization of right mastoid air cells. Auditory system: Soft tissue stranding within the right middle ear cavity. Soft tissues: Unremarkable. IMPRESSION: 1. Question of minimal right otitis media with poor pneumatization of right mastoid air cells. 2. Minimal diffuse atrophy. 3. Otherwise negative noncontrast head CT. Electronically signed by: Kaiden Murrell On 11/20/2018 02:06:18 AM
--- NOTE | 2018-11-20 02:15 | REPVR ---
EXAM: CT Angiography Chest With Contrast EXAM DATE/TIME: 11/20/2018 1:06 AM CLINICAL HISTORY: 58 years old, male; Chest pain; Type not specified; Additional info: Syncope, chest pain, epigastric pain, pos ddimer TECHNIQUE: Imaging protocol: Computed tomographic angiography of the chest with intravenous contrast. 3D rendering: MIP reconstructed images were created and reviewed. Radiation optimization: All CT scans at this facility use at least one of these dose optimization techniques: automated exposure control; mA and/or kV adjustment per patient size (includes targeted exams where dose is matched to clinical indication); or iterative reconstruction. Contrast material: ISO; Contrast volume: 100 ml; Contrast route: AC; COMPARISON: CR PORTABLE CHEST X-RAY 11/20/2018 12:40 AM FINDINGS: Pulmonary arteries: The main pulmonary artery measures 29 mm. No pulmonary embolism is identified. Aorta: The ascending thoracic aorta measures 38 mm Lungs: Minimal scattered bullous change with slight interstitial prominence and bilateral lower lobe dependent atelectasis. Irregular lobular density in the left apex with surrounding stranding and spiculation measuring approximately 4.5 x 3.0 x 4.0 cm which is viewed with suspicion. Pleural space: Unremarkable. No pneumothorax. No pleural effusion. Heart: Coronary artery calcifications are present. Diaphragm: Calcification just beneath the left hemidiaphragm. Liver: Probable right hepatic cyst measuring 3.4 cm with Hounsfield measurement of -3. Lymph nodes: Unremarkable. No enlarged lymph nodes. Bones/joints: Mild superior endplate depression of T12 and slight wedge compression of the T4 which appear to be chronic. Soft tissues: Unremarkable. IMPRESSION: 1. Large lobular mass in the left apex with stranding and spiculation measuring 4.5 x 3.0 x 4.0 cm which is viewed with suspicion for malignancy. Highly suspicious nodule(s). Consider PET/CT, or tissue sampling.(Estrella et al., Fleischner Society, 2017). 2. Minimal scattered bullous change with slight interstitial prominence. 3. Otherwise negative CTA chest. No pulmonary embolism is identified. Electronically signed by: Kaiden Murrell On 11/20/2018 02:15:12 AM
--- NOTE | 2018-11-20 02:22 | REPVR ---
EXAM: CT Abdomen and Pelvis With Contrast EXAM DATE/TIME: 11/20/2018 1:06 AM CLINICAL HISTORY: 58 years old, male; Abdominal pain; Epigastric; Additional info: Syncope, chest pain, epigastric pain, pos ddimer TECHNIQUE: Imaging protocol: Computed tomography of the abdomen and pelvis with intravenous contrast. Radiation optimization: All CT scans at this facility use at least one of these dose optimization techniques: automated exposure control; mA and/or kV adjustment per patient size (includes targeted exams where dose is matched to clinical indication); or iterative reconstruction. Contrast material: ISO; Contrast volume: 100 ml; Contrast route: AC; COMPARISON: DX HIPS BILAT 2 VIEW W/ AP PELVIS 03/26/2017 3:51 PM FINDINGS: Lungs: Minimal bibasilar bullous change with slight interstitial prominence and minimal bilateral lower lobe atelectasis or scar. Liver: Hepatic cysts measuring up to 3.2 cm centrally with Hounsfield measurement of 0. Gallbladder and bile ducts: Normal. No calcified stones. No ductal dilation. Pancreas: Normal. No ductal dilation. Spleen: The spleen measures 14.6 cm. Calcification beneath the left hemidiaphragm and adjacent to the spleen. Adrenals: Normal. No mass. Kidneys and ureters: Normal. No hydronephrosis. Stomach and bowel: Unremarkable. No obstruction. No mucosal thickening. Appendix: No evidence of appendicitis. Intraperitoneal space: Unremarkable. No free air. No significant fluid collection. Vasculature: There is mild calcification of the abdominal aorta with extension into the iliac arteries. Lymph nodes: Unremarkable. No enlarged lymph nodes. Bladder: A normal appendix is seen adjacent to the bladder dome. Reproductive: Unremarkable as visualized. Bones/joints: Mild superior endplate depression of T12 which appears to be chronic. There is degenerative disc change at L2-L3 with sclerosis adjacent to the endplates and mild retrolisthesis. Right hip prosthesis in position. Soft tissues: Unremarkable. IMPRESSION: 1. Minimal bibasilar bullous change with slight interstitial prominence and bilateral lower lobe atelectasis or scar. 2. Mild splenomegaly. 3. Otherwise negative CT abdomen/pelvis. Electronically signed by: Kaiden Murrell On 11/20/2018 02:22:21 AM
--- NOTE | 2018-11-20 05:20 | HPEPDOC ---
[facility] Medical History & Physical Date of Admission Nov 20, 2018 Date of Service: Nov 20, 2018 Primary Care Physician: RAN PARRA PA-C Attending Physician: JOJO PERES MD History and Physical Time of service 6:30 AM CHIEF COMPLAINT: abdominal pain HISTORY OF PRESENT ILLNESS: This is a 58-year-old male who presented with complaints of severe epigastric, nonradiating abdominal pain for 5 days. He cannot identify any aggravating or alleviating factors. He denies having nausea, denies having vomiting, denies having fevers, denies having chills, denies having diarrhea. He has lost weight, which she attributes to bereavement since his recently after battling pancreatic cancer. REVIEW OF SYSTEMS: 12 point review of systems negative except as listed in HPI and worsening of his chronic back pain. 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 Chronic hypertension. Polyarticular osteo-arthritis Hypothyroidism. Vitamin D deficiency. Dyslipidemia Anxiety/depression/explosive personality disorder GERD Status post resection of tubular adenoma of the colon. History of gastric polyps. History of iron deficiency anemia SOCIAL HISTORY: Chews tobacco use to smoke tobacco products Drinks multiple alcoholic beverages daily Marijuana use. Lives with his and son FAMILY HISTORY: COPD Lung cancer. Diabetes ALLERGIES: Please see below. HOME MEDICATIONS: Please see below. PHYSICAL EXAMINATION: VITAL SIGNS: Please see below. GENERAL APPEARANCE: Obese, well-developed, slightly anxious HEENT: Normocephalic, atraumatic, mucous members moist and pink, face slightly flushed CARDIOVASCULAR: Regular rate and rhythm, no murmurs, rubs or gallops LUNGS: Coughing occasionally, has expiratory rhonchi ABDOMEN: Obese, tender with palpation of epigastric region MUSCULOSKELETAL: Range motion intact in all 4 extremities INTEGUMENT: No bruising on the abdomen, has spider angiomata on the face NEUROLOGICAL:. Cranial 2-12 grossly intact, speech not dysarthric PSYCHIATRIC: Alert and oriented to person, place and time, able to understand and follow commands LABORATORY DATA: See below. IMAGING: CT of the head showed a questionable right otitis media with poor pneumatized edition of the right mastoid air cells and minimal diffuse atrophy CT of the chest identified a left apical mass that was 4.5 x 3 x [address] of abdomen and pelvis showed bibasilar bullous changes and mild splenomegaly MICROBIOLOGY: Please see below. ASSESSMENT: Mr. Thompson is a 58-year-old male with a past medical history of alcohol abuse, tobacco abuse, DVT and PE, chronic hypertension, hypothyroidism, dyslipidemia, GERD, and polyarticular osteoarthritis. Will be admitted for evaluation of syncope, management of atrial fibrillation and evaluation of a newly diagnosed lung mass. PLAN: 1. Syncope Possibly due to A. fib CT of the head showed a questionable right otitis media with poor pneumatized edition of the right mastoid air cells and minimal diffuse atrophy Troponin wnl Plan: admit to PCU / Telemetry / follow-up orthostats and VBG to r/o hypoxia and hypercarbia/ f/u CT of head w contrast to r/o mets 2. Abdominal pain Possibly due to alcoholic gastritis versus ACS equivalent Plan: Zofran/Pepto-Bismol / follow-up serial troponin and repeat EKG with chest pain 3. Newly diagnosed atrial fibrillation. The patient drinks alcohol daily, which predisposes him to A. fib CTA was negative for acute PE Troponin, potassium, and calcium are within normal limits CHADS VASC Score to determine risk of stroke 1= point = no AC indicated Plan: cardizem drip / hold AC pending confirmation with Onc on weather pt will need lung biopsy / trend trops / f/u repeat EKG w chest pain / follow-up BNP, TSH, and magnesium & Echo to r/o valvulopathy 3. Newly diagnosed lung mass Likely due to lung CA Pt has hx of smoking and family hx of lung CA CTA showed a 4.5 x 3 x 4 cm left apical lesion Plan: per d/w Dr.Day Gill IR consult for biopsy 4. PE/DVT Not compliant with anticoagulant due to financial issues. Plan: Hold anticoagulation pending possible biopsy 5. Alcohol abuse Serum Etho elevated Plan: Ativan per CIWA or SAS protocol / seizure precautions / fall precautions / Thiamine , Folic acid , MVI / Zofran PRN for n/v 6. Chronic hypertension. Controlled. Plan: continue home meds 7. Polyarticular osteo-arthritis Plan: continue home meds 8. Hypothyroidism. Plan continue home meds 9. Anxiety/depression/explosive personality disorder Plan: continue home meds 10. Dyslipidemia Plan: continue home meds 11.GERD Plan: c/w home meds DVT prophylaxis with SCDs. Disposition pending clinical course Vital Signs Vital Signs Date Time Temp Pulse Resp B/P (MAP) Pulse Ox O2 Delivery O2 Flow Rate FiO2 11/20/18 05:01 109 20 103/58 (73) 96 Room Air 11/20/18 04:26 2.0 11/19/18 23:37 97.7 Laboratory Data Labs 24H Laboratory Tests 2 11/20/18 00:00: Immature Granulocyte % (Auto) 1.6, White Blood Count 9.4, Red Blood Count 4.25L, Hemoglobin 13.5, Hematocrit 39.7L, Mean Corpuscular Volume 93.4, Mean Corpuscular Hemoglobin 31.8, Mean Corpuscular Hemoglobin Concent 34.0, Red Cell Distribution Width 13.4, Platelet Count 160, Neutrophils (%) (Auto) 70.0H, Lymphocytes (%) (Auto) 20.2L, Monocytes (%) (Auto) 7.1H, Eosinophils (%) (Auto) 0.4, Basophils (%) (Auto) 0.7, Neutrophils # (Auto) 6.6, Lymphocytes # (Auto) 1.9, Monocytes # (Auto) 0.7, Eosinophils # (Auto) 0.0, Basophils # (Auto) 0.1, Nucleated Red Blood Cells % (auto) 0.0, Prothrombin Time 12.3, Prothromb Time International Ratio 0.94, Activated Partial Thromboplast Time 25.6, D-Dimer, Quantitative 1980.30H, Anion Gap 11, Glomerular Filtration Rate > 60.0, Calcium Level 8.7, Aspartate Amino Transf (AST/SGOT) 44H, Alanine Aminotransferase (ALT/SGPT) 24, Alkaline Phosphatase 89, Total Bilirubin 0.4, Direct Bilirubin < 0.1, Total Creatine Kinase 196, Creatine Kinase MB 1.9, Creatine Kinase MB Relative Index 0.97, Troponin I < 0.02, Total Protein 7.6, Albumin 4.0, Albumin/Globulin Ratio 1.11, Lipase 120, Ethyl Alcohol Level 0.273H CBC/BMP Laboratory Tests 11/20/18 00:00 Red Blood Count 4.25 L, Mean Corpuscular Volume 93.4, Mean Corpuscular Hemoglobin 31.8, Mean Corpuscular Hemoglobin Concent 34.0, Red Cell Distribution Width 13.4, Neutrophils (%) (Auto) 70.0 H, Lymphocytes (%) (Auto) 20.2 L, Monocytes (%) (Auto) 7.1 H, Eosinophils (%) (Auto) 0.4, Basophils (%) (Auto) 0.7, Neutrophils # (Auto) 6.6, Lymphocytes # (Auto) 1.9, Monocytes # (Auto) 0.7, Eosinophils # (Auto) 0.0, Basophils # (Auto) 0.1 Home Medications Scheduled Aspirin (Aspirin) 81 Mg Tab.chew, 81 MG PO DAILY Cholecalciferol (Vitamin D3) (Vitamin D3) 1,000 Unit Tab, 1,000 UNIT PO DAILY Levothyroxine Sodium (Levoxyl) 88 Mcg Tab, 88 MCG PO DAILY TAKES WHEN HE GETS UP IN THE NIGHT TO USE RESTROOM Lisinopril/Hydrochlorothiazide (Lisinopril-Hctz 10-12.5 mg Tab) 1 Tab Tab, 1 TAB PO DAILY Omeprazole (Omeprazole) 20 Mg Cap, 20 MG PO DAILY Sertraline HCl (Sertraline HCl) 100 Mg Tab, 200 MG PO DAILY Scheduled PRN Acetaminophen with Codeine (Tylenol with Codeine #4 Tablet) 1 Tab Tab, 1 TAB PO QID PRN for PAIN Allergies Coded Allergies: No Known Allergies (Verified , 04/07/09) A-FIB/CHADSVASC A-FIB History Current/History of A-Fib/PAF?: Yes Current PO Anticoag Therapy: No Age/Risk Factor Scoring CHADSVASC: CHADSVASC Response (Comments) Value Age Risk Factor Age < 65 years old 0 Gender Risk Factor Male 0 Hx of CHF No 0 Hx of HTN Yes 1 Hx of Stroke/TIA/or VTE No 0 Hx of Diabetes No 0 Hx of Vascular Disease No 0 Total 1 Treatment Treatment ordered: NONE, Holding Other JOJO PERES MD Nov 20, 2018 05:20
[2018-11-20] MEDS ORDERED: ASPI81CH33 PO (05:24)
[2018-11-20] MEDS ORDERED: PINK BISMUTH SUSP 524MG/30ML ORAL SYRINGE PO PRN (06:00)
[2018-11-20] MEDS ORDERED: ONDANSETRON 4MG/2ML VIAL (J2405) IV PRN (06:00)
[2018-11-20] MEDS ORDERED: diltiaZEM 125 MG in NS 100 ML IV SCH (06:30)
[2018-11-20] MEDS: LEVOTHYROXINE 88MCG TABLET (0.088 MG) PO SCH (06:36)
[2018-11-20 06:55] VITALS: BP 160/100
[2018-11-20 07:14] LABS: VENOUS BASE EXCESS -8.1 (-2.0-2.0); VENOUS HCO3 16.6 MEQ/L (23.0-27.0); VENOUS O2 SATURATION 99.2 % (60.0-80.0); VENOUS PARTIAL PRESSURE CO2 31.6 mmHg (38.0-50.0); VENOUS PH 7.338 UNITS (7.330-7.430); VENOUS TOTAL CO2 17.6 MEQ/L (24.0-28.0)
[2018-11-20 08:00] VITALS: BP 132/90
--- NOTE | 2018-11-20 08:02 | IPNPDOC ---
Subjective Date Seen The patient was seen on 11/20/18. Subjective Chief Complaint/HPI Atrial fib with RVR Events since last encounter 58 yo male admitted for Atrial Fib with RVR. Patient was at home and developed sudden, severe CP and epigastric pain. Admits to anxiety and depression due to recent loss of . has documented explosive personality disorder in outpatient records. CIWA protocol and lorazepam ordered prn. Constitutional: Reports: Fatigue, Weight Loss; Denies: Chills, Fever, Night Sweats ENT: Denies: Head Aches, Ear Pain, Dysphagia Skin: Denies: Rash, Lesions, Breakdown Pulmonary: Reports: Dyspnea, Cough Cardiovascular: Reports: Chest Pain; Denies: Palpitations, Orthopnea, Edema, Lt Headedness Gastrointestinal: Denies: Nausea, Vomiting, Abdominal Pain, Diarrhea, Constipation Psych: Reports: Anxiety Objective Physical Examination General Exam: Positive: Alert, Cooperative, Mild Distress Eye Exam: Positive: PERRLA, Conjunctiva & lids normal, EOMI; Negative: Sclera icteric Neck Exam: Positive: Supple; Negative: JVD, thyromegaly Chest Exam: Positive: Diminished Heart Exam: Positive: Tachycardic, Irregular Rhythm Telemetry: Positive: Atrial fibrillation Abdomen Exam: Positive: Normal bowel sounds, Soft; Negative: Tenderness Extremity Exam: Positive: Normal pulses; Negative: Clubbing, Cyanosis, Edema Skin Exam: Positive: Nl turgor and temperature; Negative: Breakdown Psych Exam: Positive: Anxiety, Oriented x 3 Assessment /Plan Problems (1) Chest pain Status: Acute Problem Text: telemetry. Q6 hrs troponin, EKG. trial GI cocktail. Will add on protonix. Gastritis is in differential due to hx of ETOH abuse. (2) New onset atrial fibrillation Status: Acute Problem Text: Cardizem 30 mg po q 6 hrs. HR 90-120 on average. Eliquis 5 mg po bid Echo pending. (3) Lung mass Status: Acute Problem Text: new lung mass noted on CT scan. Will workup as outpatient. (4) Alcohol abuse Status: Chronic Problem Text: JON: 0.27 on admission. CIWA protocol in order. (5) Hypothyroidism Status: Chronic Problem Text: TSH pending (6) Hypertension Status: Chronic Problem Text: Takes Lisinopril/HCTZ at home. Continue Lisinopril 10 mg po daily. HCTZ on hold. Cardizem added i Plan/VTE VTE Prophylaxis Ordered?: Yes VS, I&O, 24H, Fishbone Vital Signs/I&O Vital Signs Date Time Temp Pulse Resp B/P (MAP) Pulse Ox O2 Delivery O2 Flow Rate FiO2 11/20/18 06:55 97.5 99 20 160/100 (120) 98 11/20/18 06:45 Room Air 11/20/18 04:26 2.0 I&O- Last 24 Hours up to 6 AM 11/20/18 06:00 Intake Total 2000 ml Balance 2000 ml Laboratory Data 24H LABS Laboratory Tests 2 11/20/18 00:00: Immature Granulocyte % (Auto) 1.6, White Blood Count 9.4, Red Blood Count 4.25L, Hemoglobin 13.5, Hematocrit 39.7L, Mean Corpuscular Volume 93.4, Mean Corpuscular Hemoglobin 31.8, Mean Corpuscular Hemoglobin Concent 34.0, Red Cell Distribution Width 13.4, Platelet Count 160, Neutrophils (%) (Auto) 70.0H, Lymphocytes (%) (Auto) 20.2L, Monocytes (%) (Auto) 7.1H, Eosinophils (%) (Auto) 0.4, Basophils (%) (Auto) 0.7, Neutrophils # (Auto) 6.6, Lymphocytes # (Auto) 1.9, Monocytes # (Auto) 0.7, Eosinophils # (Auto) 0.0, Basophils # (Auto) 0.1, Nucleated Red Blood Cells % (auto) 0.0, Prothrombin Time 12.3, Prothromb Time International Ratio 0.94, Activated Partial Thromboplast Time 25.6, D-Dimer, Quantitative 1980.30H, Anion Gap 11, Glomerular Filtration Rate > 60.0, Calcium Level 8.7, Aspartate Amino Transf (AST/SGOT) 44H, Alanine Aminotransferase (ALT/SGPT) 24, Alkaline Phosphatase 89, Total Bilirubin 0.4, Direct Bilirubin < 0.1, Total Creatine Kinase 196, Creatine Kinase MB 1.9, Creatine Kinase MB Relative Index 0.97, Troponin I < 0.02, Total Protein 7.6, Albumin 4.0, Al bumin/Globulin Ratio 1.11, Lipase 120, Ethyl Alcohol Level 0.273H 11/20/18 07:09: Blood Gas Puncture Site UNKNOWN, Blood Gas Bicarbonate Standard 18.0, Venous Blood pH 7.338, Venous Blood Partial Pressure CO2 31.6L, Venous Blood Partial Pressure O2 187.0H, Venous Blood Total Carbon Dioxide 17.6L, Venous Blood HCO3 16.6L, Venous Blood Oxygen Saturation 99.2H, Venous Blood Base Excess -8.1L CBC/BMP Laboratory Tests 11/20/18 00:00 Red Blood Count 4.25 L, Mean Corpuscular Volume 93.4, Mean Corpuscular Hemoglobin 31.8, Mean Corpuscular Hemoglobin Concent 34.0, Red Cell Distribution Width 13.4, Neutrophils (%) (Auto) 70.0 H, Lymphocytes (%) (Auto) 20.2 L, M onocytes (%) (Auto) 7.1 H, Eosinophils (%) (Auto) 0.4, Basophils (%) (Auto) 0.7, Neutrophils # (Auto) 6.6, Lymphocytes # (Auto) 1.9, Monocytes # (Auto) 0.7, Eosinophils # (Auto) 0.0, Basophils # (Auto) 0.1 Naima VillanuevaP Nov 20, 2018 08:02
[2018-11-20 08:05] LABS: BLOOD UREA NITROGEN 18 MG/DL (7-18); CALCIUM LEVEL 7.6 MG/DL (8.5-10.1); CARBON DIOXIDE LEVEL 18 MEQ/L (21-32); CHLORIDE LEVEL 109 MEQ/L (98-107); CREATININE FOR GFR 0.92 MG/DL (0.70-1.30); FREE T4 0.86 NG/DL (0.76-1.46); GLOMERULAR FILTRATION RATE > 60.0 (>56); GLUCOSE, FASTING 79 MG/DL (70-100); MAGNESIUM LEVEL 1.9 MG/DL (1.8-2.4); NT-PRO BNP 704 PG/ML (<125); POTASSIUM SERUM 4.4 MEQ/L (3.5-5.1); SODIUM LEVEL 138 MEQ/L (136-145); TROPONIN I < 0.02 NG/ML (< 0.10)
[2018-11-20] MEDS: SERTRALINE 100 MG TAB PO SCH (08:05)
[2018-11-20] MEDS: LISINOPRIL 10 MG TAB PO SCH (08:05)
[2018-11-20] MEDS: APIXABAN 5 MG TAB (ELIQUIS) PO SCH ×2 (08:05→20:09)
[2018-11-20] MEDS: LORazepam 2 MG TAB PO PRN (08:10)
[2018-11-20] MEDS ORDERED: THIAMINE 100 MG TAB PO SCH (09:00)
[2018-11-20] MEDS ORDERED: GI COCKTAIL 50ML BTL(HYOSCYAMINE/MAALOX/LIDOCAINE VISCOUS)(1:3:1) PO ONE (09:00)
[2018-11-20] MEDS ORDERED: hydroCHLOROthiazide 12.5 MG CAPSULE PO SCH (09:00)
[2018-11-20] MEDS ORDERED: FOLIC ACID 1 MG TAB PO SCH (09:00)
[2018-11-20] MEDS ORDERED: OMEPRAZOLE 20 MG CAP PO SCH (09:00)
[2018-11-20] MEDS ORDERED: MULTIVITAMINS/MINERALS THERAP 1 TAB PO SCH (09:00)
[2018-11-20] MEDS: PANTOPRAZOLE 40MG INJ (PROTONIX) (C9113) IV SCH (09:56)
--- NOTE | 2018-11-20 10:02 | REP ---
Clinical: Chest pain . Comparison: 04/07/2013 . Findings: The mediastinum and cardiac silhouette are stable and within normal limits for portable technique. The lung arellano are clear without acute consolidation, effusion, or pneumothorax. Skeletal structures are intact. Impression: No acute cardiopulmonary process appreciated. Electronically Signed by Frederick Bryant MD 11/20/2018 08:05 A
[2018-11-20] MEDS: ACETAMINOPHEN 650MG ER TAB (TYLENOL ARTHRITIS) PO PRN ×2 (11:43→17:43)
[2018-11-20 12:00] VITALS: BP 142/94
[2018-11-20] MEDS ORDERED: MULTIVITAMIN -ADULT INJECTION 10 ML, THIAMINE INJection 100 MG, FOLIC ACID 1 MG in NS 1... IV ONE (13:00)
[2018-11-20 16:00] VITALS: BP 130/86
--- NOTE | 2018-11-20 17:10 | ECGEPIP ---
[facility] - ED Test Date: 2018-11-19 Pat Name: JATINDER COLÓN Department: Room: [place] [address] Gender: Male [employer] Worker: BERYL : 1960 Requested By: DENI Kamara Order Number: [id number] Reading MD: Argenis Rae Measurements Intervals [place] Rate: 99 P: [place]: 0 QRS: 64 QRSD: 99 T: 40 QT: 345 QTc: 444 Interpretive Statements ATRIAL FIBRILLATION ABNORMAL RHYTHM ECG NSTTW abnormalities NO PRIOR Electronically Signed on 11-20-2018 17:09:50 EDT by Argenis Rae
[2018-11-20 18:12] LABS: HEMOGLOBIN 12.4 g/dl (13.5-17.5); MEAN CORPUSCULAR HEMOGLOBIN 32.6 pg (27.0-33.0); MEAN CORPUSCULAR HGB CONC 34.4 g/dl (32.0-36.5); MEAN CORPUSCULAR VOLUME 94.7 fl (80.0-96.0); PLATELET COUNT, AUTOMATED 103 10^3/uL (150-450); WHITE BLOOD COUNT 4.9 10^3/uL (4.0-10.0)
[2018-11-20 20:00] VITALS: BP 104/74
--- NOTE | 2018-11-20 20:32 | ECHO ---
DATE OF PROCEDURE: 11/20/2018 Date of : 1960 Age: 58 REFERRING PHYSICIAN: Cindi Baig MD PATIENT LOCATION: Room 3222 REASON FOR ECHOCARDIOGRAM: Syncope. 2D MEASUREMENTS IVS: 1.2 cm LV: 5.5 cm LVPW: 0.9 cm LA: 5.0 cm Aorta: 3.8 cm IVC: 1.6 cm DOPPLER MEASUREMENTS Peak velocity across the aortic valve: 0.93 m/s Peak velocity across the LVOT: 0.69 m/s Mitral E: 1.0. Maximum tricuspid valve velocity: 2.6 m/s 2-D COMMENTS 1. Borderline enlarged left ventricle with normal left ventricular wall thickness and systolic function. The estimated global left ventricular systolic ejection fraction is 65 to 70%. 2. Mildly to moderately enlarged left atrium. Normal right atrium and right ventricle. 3. The atrial septum appeared to be normal without evidence of defect or shunt. 4. Normal aortic root. 5. No pericardial effusion seen. 6. Mildly calcified aortic valve with normal leaflet excursion. Mildly calcified mitral annulus and could not rule out mild prolapse of the anterior mitral valve leaflet. Normal tricuspid valve and pulmonic valve. The proximal pulmonary artery branches were not well visualized. 7. The inferior vena cava was normal in size, central venous pressure is most likely normal. DOPPLER It detects mild to moderate mitral regurgitation, mild tricuspid regurgitation. Trace pulmonic regurgitation also detected. The calculated pulmonary artery systolic pressure varies between 30-40 mmHg. Subjectively, there are features of left ventricular diastolic dysfunction manifested by abnormal relaxation. IMPRESSION 1. Normal global left ventricular systolic function with borderline enlarged left ventricle. Subjectively, there was some features of left ventricular diastolic dysfunction manifested by abnormal relaxation. 2. Aortic valve sclerosis with mild aortic regurgitation but no aortic stenosis. 3. Mild to moderate mitral regurgitation with mitral annulus calcification and mild to moderately enlarged left atrium. Could not rule out prolapse of the anterior mitral leaflet. 4. Mild tricuspid regurgitation with mild pulmonary hypertension. MTDD
[2018-11-20] MEDS ORDERED: CALCIUM CARBONATE 500 MG CHEW U/D PO ONE (21:00)
[2018-11-20] MEDS ORDERED: LORazepam 1 MG TAB PO ONE (21:00)
[2018-11-21] VITALS (9 sets, daily range): BP systolic 106–180; BP diastolic 65–110
[2018-11-21] MEDS: ACETAMINOPHEN 650MG ER TAB (TYLENOL ARTHRITIS) PO PRN ×3 (03:27→20:02)
[2018-11-21] MEDS: LEVOTHYROXINE 88MCG TABLET (0.088 MG) PO SCH (06:46)
--- NOTE | 2018-11-21 09:38 | IPNPDOC ---
Subjective Date Seen The patient was seen on 11/21/18. Subjective Chief Complaint/HPI CP, afib with RVR Events since last encounter CP improved with GI cocktail. Protonix IV q12 hrs. Tolerating po today./ States pain is improving. remains tachycardic to 150s with exertion,. 110-120 at rest. CIWA protocol remains. Has received 2 doses of Ativan Constitutional: Denies: Chills, Fever, Night Sweats Pulmonary: Denies: Dyspnea, Cough Cardiovascular: Reports: Chest Pain; Denies: Palpitations, Orthopnea Gastrointestinal: Reports: Abdominal Pain (epigastric); Denies: Nausea, Vomiting Psych: Reports: Mood Normal; Denies: Depression, Memory Issues Objective Physical Examination General Exam: Positive: Alert, Cooperative, Mild Distress Eye Exam: Positive: PERRLA, Conjunctiva & lids normal, EOMI; Negative: Sclera icteric Neck Exam: Positive: Supple; Negative: JVD, thyromegaly Chest Exam: Positive: Diminished Heart Exam: Positive: Tachycardic, Irregular Rhythm Telemetry: Positive: Atrial fibrillation, Tachycardia Abdomen Exam: Positive: Normal bowel sounds, Soft; Negative: Tenderness Extremity Exam: Positive: Normal pulses; Negative: Clubbing, Cyanosis, Edema Skin Exam: Positive: Nl turgor and temperature; Negative: Breakdown Psych Exam: Positive: Anxiety, Oriented x 3 Assessment /Plan Problems (1) Chest pain Status: Acute Problem Text: 11/21/18: pain improved with GI cocktail. Concerning for esophageal etiology. UGI ordered. telemetry. Q6 hrs troponin, EKG. trial GI cocktail. Will add on protonix. Gastritis is in differential due to hx of ETOH abuse. (2) New onset atrial fibrillation Permanent Comment: 11/20/18 TTE: 1. Normal global left ventricular systolic function with borderline enlarged left ventricle. Subjectively, there was some features of left ventricular diastolic dysfunction manifested by abnormal relaxation. 2. Aortic valve sclerosis with mild aortic regurgitation but no aortic stenosis. 3. Mild to moderate mitral regurgitation with mitral annulus calcification and mild to moderately enlarged left atrium. Could not rule out prolapse of the anterior mitral leaflet. 4. Mild tricuspid regurgitation with mild pulmonary hypertension. Last Edited By: Gio Thomas MD on Nov 21, 2018 17:38 Status: Acute Problem Text: 2 holiday heart, LAE 50, MR increase Cardizem 60 mg po q 6 hrs. HR 120s, elevates to 150 on exertion. AC c apix (new start) TTE as per above (3) Lung mass Status: Acute Problem Text: new lung mass noted on CT scan. Will workup as outpatient. (4) Alcohol abuse Status: Chronic Response to Treatment: Stable Problem Text: JON: 0.27 on admission. CIWA protocol in order. (5) Hypothyroidism Status: Chronic Problem Text: 11/20/18 3.1, 0.9 on HD LT4 88 (6) Hypertension Status: Chronic Discussed With: Patient Problem Text: Takes Lisinopril/HCTZ at home. Continue Lisinopril 10 mg po daily. HCTZ on hold. Cardizem added i Plan/VTE VTE Prophylaxis Ordered?: Yes VS, I&O, 24H, Fishbone Vital Signs/I&O Vital Signs Date Time Temp Pulse Resp B/P (MAP) Pulse Ox O2 Delivery O2 Flow Rate FiO2 11/21/18 08:25 98.0 68 18 158/110 (126) 96 11/20/18 06:45 Room Air 11/20/18 04:26 2.0 I&O- Last 24 Hours up to 6 AM 11/21/18 06:00 Intake Total 1505 ml Output Total 1325 ml Balance 180 ml Laboratory Data 24H LABS Laboratory Tests 2 11/20/18 17:58: Nucleated Red Blood Cells % (auto) 0.0, Troponin I < 0.02 CBC/BMP Laboratory Tests 11/20/18 17:58 Red Blood Count 3.80 L, Mean Corpuscular Volume 94.7, Mean Corpuscular Hemoglobin 32.6, Mean Corpuscular Hemoglobin Concent 34.4, Red Cell Distribution Width 13.2 Naima Villanueva Nov 21, 2018 09:38 Gio Thomas M.D. Nov 21, 2018 17:42
[2018-11-21] MEDS: SERTRALINE 100 MG TAB PO SCH (09:41)
[2018-11-21] MEDS: LISINOPRIL 10 MG TAB PO SCH (09:42)
[2018-11-21] MEDS: APIXABAN 5 MG TAB (ELIQUIS) PO SCH ×2 (09:42→20:02)
[2018-11-21] MEDS: PANTOPRAZOLE 40MG INJ (PROTONIX) (C9113) IV SCH (09:42)
[2018-11-21] MEDS: GI COCKTAIL 50ML BTL(HYOSCYAMINE/MAALOX/LIDOCAINE VISCOUS)(1:3:1) PO PRN ×2 (12:25→18:39)
[2018-11-21 15:29] LABS: HEMATOCRIT 41.5 % (42.0-52.0); HEMOGLOBIN 14.1 g/dl (13.5-17.5); MEAN CORPUSCULAR HEMOGLOBIN 32.4 pg (27.0-33.0); MEAN CORPUSCULAR VOLUME 95.4 fl (80.0-96.0); PLATELET COUNT, AUTOMATED 132 10^3/uL (150-450); RED BLOOD COUNT 4.35 10^6/uL (4.30-6.10); WHITE BLOOD COUNT 6.4 10^3/uL (4.0-10.0)
[2018-11-21 15:58] LABS: BLOOD UREA NITROGEN 15 MG/DL (7-18); CALCIUM LEVEL 9.1 MG/DL (8.5-10.1); CARBON DIOXIDE LEVEL 26 MEQ/L (21-32); CHLORIDE LEVEL 107 MEQ/L (98-107); CREATININE FOR GFR 1.07 MG/DL (0.70-1.30); GLOMERULAR FILTRATION RATE > 60.0 (>56); GLUCOSE, FASTING 155 MG/DL (70-100); MAGNESIUM LEVEL 2.1 MG/DL (1.8-2.4); POTASSIUM SERUM 4.2 MEQ/L (3.5-5.1); SODIUM LEVEL 137 MEQ/L (136-145)
[2018-11-21] MEDS: LORazepam 2 MG TAB PO PRN (20:02)
[2018-11-22] VITALS (10 sets, daily range): BP systolic 119–140; BP diastolic 73–102
[2018-11-22] MEDS: LEVOTHYROXINE 88MCG TABLET (0.088 MG) PO SCH (05:07)
[2018-11-22] MEDS: LORazepam 2 MG TAB PO PRN (05:18)
[2018-11-22 05:22] LABS: BASO % 0.6 % (0.0-1.0); EOS % 0.8 % (0.0-3.0); HEMATOCRIT 37.3 % (42.0-52.0); HEMOGLOBIN 12.6 g/dl (13.5-17.5); LYMPH % 21.6 % (24.0-44.0); MEAN CORPUSCULAR HEMOGLOBIN 32.4 pg (27.0-33.0); MEAN CORPUSCULAR HGB CONC 33.8 g/dl (32.0-36.5); MEAN CORPUSCULAR VOLUME 95.9 fl (80.0-96.0); MONO # 0.4 10^3/uL (0.0-0.8); NEUTROPHILS # 3.2 10^3/uL (1.5-8.5); PLATELET COUNT, AUTOMATED 108 10^3/uL (150-450); RED BLOOD COUNT 3.89 10^6/uL (4.30-6.10); WHITE BLOOD COUNT 4.8 10^3/uL (4.0-10.0)
[2018-11-22 05:42] LABS: ALBUMIN 3.2 GM/DL (3.2-5.2); ALT/SGPT 14 U/L (12-78); BILIRUBIN,TOTAL 0.5 MG/DL (0.2-1.0); BLOOD UREA NITROGEN 14 MG/DL (7-18); CARBON DIOXIDE LEVEL 26 MEQ/L (21-32); CHLORIDE LEVEL 107 MEQ/L (98-107); CREATININE FOR GFR 0.82 MG/DL (0.70-1.30); GLOMERULAR FILTRATION RATE > 60.0 (>56); GLUCOSE, FASTING 89 MG/DL (70-100); SODIUM LEVEL 140 MEQ/L (136-145); TOTAL PROTEIN 6.7 GM/DL (6.4-8.2)
--- NOTE | 2018-11-22 10:00 | IPNPDOC ---
Subjective Date Seen The patient was seen on 11/22/18. Subjective Chief Complaint/HPI Pt this morning states that he cont to have pain in his sternum, worse with deep breathing, has received GI cocktail with relief. Denies nausea. + loss of appetite. General: Reports: Night Sweats, Fatigue Constitutional: Denies: Chills, Fever ENT: Denies: Head Aches Pulmonary: Reports: Dyspnea, Cough (denies hemoptysis) Cardiovascular: Reports: Chest Pain; Denies: Palpitations Gastrointestinal: Denies: Nausea, Vomiting, Abdominal Pain Neurological: Denies: Weakness Psych: Reports: Mood Normal Objective Physical Examination General Exam: Positive: Alert, Cooperative, No Acute Distress Eye Exam: Positive: PERRLA, Conjunctiva & lids normal, EOMI; Negative: Sclera icteric Neck Exam: Positive: Supple; Negative: JVD, thyromegaly Chest Exam: Positive: Diminished Heart Exam: Positive: Tachycardic, Irregular Rhythm Telemetry: Positive: Atrial fibrillation, Tachycardia Abdomen Exam: Positive: Normal bowel sounds, Soft; Negative: Tenderness Extremity Exam: Positive: Normal pulses; Negative: Clubbing, Cyanosis, Edema Skin Exam: Positive: Nl turgor and temperature; Negative: Breakdown Psych Exam: Positive: Anxiety, Oriented x 3 Assessment /Plan Problems (1) Chest pain Status: Acute Problem Text: 11/22 UGI reordered this morning. 11/21/18: pain improved with GI cocktail. Concerning for esophageal etiology. UGI ordered. telemetry. Q6 hrs troponin, EKG. trial GI cocktail. Will add on protonix. Gastritis is in differential due to hx of ETOH abuse. (2) New onset atrial fibrillation Permanent Comment: 11/20/18 TTE: 1. Normal global left ventricular systolic function with borderline enlarged left ventricle. Subjectively, there was some features of left ventricular diastolic dysfunction manifested by abnormal relaxation. 2. Aortic valve sclerosis with mild aortic regurgitation but no aortic stenosis. 3. Mild to moderate mitral regurgitation with mitral annulus calcification and mild to moderately enlarged left atrium. Could not rule out prolapse of the anterior mitral leaflet. 4. Mild tricuspid regurgitation with mild pulmonary hypertension. Last Edited By: Gio Thomas MD on Nov 21, 2018 17:38 Status: Acute Problem Text: 11/22 rate improved with adjustment of Cardizem dose yesterday, now taking 60 mg [id number] to 240 CD 2 holiday heart, LAE 50, MR increase Cardizem 60 mg po q 6 hrs. HR 120s, elevates to 150 on exertion. AC c apix (new start) TTE as per above (3) Lung mass Status: Acute Problem Text: new lung mass noted on CT scan. Will workup as outpatient. (4) Alcohol abuse Status: Chronic Response to Treatment: Stable Problem Text: JON: 0.27 on admission. CIWA protocol in order. (5) Hypothyroidism Status: Chronic Problem Text: 11/20/18 3.1, 0.9 on HD LT4 88 (6) Hypertension Status: Chronic Discussed With: Patient Problem Text: Takes Lisinopril/HCTZ at home. Continue Lisinopril 10 mg po daily. HCTZ on hold. Cardizem added i Plan/VTE VTE Prophylaxis Ordered?: Yes VS, I&O, 24H, Fishbone Vital Signs/I&O Vital Signs Date Time Temp Pulse Resp B/P (MAP) Pulse Ox O2 Delivery O2 Flow Rate FiO2 11/22/18 08:00 101 119/78 11/22/18 08:00 97.0 20 97 11/20/18 06:45 Room Air 11/20/18 04:26 2.0 I&O- Last 24 Hours up to 6 AM 11/22/18 06:00 Intake Total 1380 ml Output Total 800 ml Balance 580 ml Laboratory Data 24H LABS Laboratory Tests 2 11/21/18 15:14: Nucleated Red Blood Cells % (auto) 0.0, Anion Gap 4L, Glomerular Filtration Rate > 60.0, Blood Urea Nitrogen 15, Creatinine 1.07, Sodium Level 137, Potassium Level 4.2, Chloride Level 107, Carbon Dioxide Level 26, Calcium Level 9.1#, Magnesium Level 2.1 11/22/18 05:05: Nucleated Red Blood Cells % (auto) 0.0, Anion Gap 7L, Glomerular Filtration Rate > 60.0, Blood Urea Nitrogen 14, Creatinine 0.82, Sodium Level 140, Potassium Level 4.0, Chloride Level 107, Carbon Dioxide Level 26, Calcium Level 9.0, Immature Granulocyte % (Auto) 1.0, White Blood Count 4.8, Red Blood Count 3.89L, Hemoglobin 12.6L, Hematocrit 37.3L, Mean Corpuscular Volume 95.9, Mean Corpuscul ar Hemoglobin 32.4, Mean Corpuscular Hemoglobin Concent 33.8, Red Cell Distribution Width 13.2, Platelet Count 108L, Neutrophils (%) (Auto) 67.0H, Lymphocytes (%) (Auto) 21.6L, Monocytes (%) (Auto) 9.0H, Eosinophils (%) (Auto) 0.8, Basophils (%) (Auto) 0.6, Neutrophils # (Auto) 3.2, Lymphocytes # (Auto) 1.0L, Monocytes # (Auto) 0.4, Eosinophils # (Auto) 0.0, Basophils # (Auto) 0.0, Aspartate Amino Transf (AST/SGOT) 9, Alanine Aminotransferase (ALT/SGPT) 14, Alkaline Phosphatase 79, Total Bilirubin 0.5, Total Protein 6.7, Albumin 3.2, Albumin/Globulin Ratio 0.91L CBC/BMP Laboratory Tests 11/21/18 15:14 Red Blood Count 4.35, Mean Corpuscular Volume 95.4, Mean Corpuscular Hemoglobin 32.4, Mean Corpuscular Hemoglobin Concent 34.0, Red Cell Distribution Width 13.2, Calcium Level 9.1 # 11/22/18 05:05 Red Blood Count 3.89 L, Mean Corpuscular Volume 95.9, Mean Corpuscular Hemoglobin 32.4, Mean Corpuscular Hemoglobin Concent 33.8, Red Cell Distribution Width 13.2, Calcium Level 9.0, Neutrophils (%) (Auto) 67.0 H, Lymphocytes (%) (Auto) 21.6 L, Monocytes (%) (Auto) 9.0 H, Eosinophils (%) (Auto) 0.8, Basophils (%) (Auto) 0.6, Neutrophils # (Auto) 3.2, Lymphocytes # (Auto) 1.0 L, Monocytes # (Auto) 0.4, Eosinophils # (Auto) 0.0, Basophils # (Auto) 0.0, Aspartate Amino Transf (AST/SGOT) 9, Alanine Aminotransferase (ALT/SGPT) 14, Alkaline Phosphatas e 79, Total Bilirubin 0.5, Total Protein 6.7, Albumin 3.2 RAN PARRA PA-C Nov 22, 2018 10:00 Gio Thomas M.D. Nov 22, 2018 17:45
[2018-11-22] MEDS ORDERED: E-Z-PAQUE 96% w/w SUSP 176GM BTL As Ordered ONE (10:11)
[2018-11-22] MEDS ORDERED: E-Z-GAS II EFFERVESCENT PACKET (SODIUM BICARB./CITRIC ACID/SIMETHICONE) As Ordered ONE (10:11)
[2018-11-22] MEDS ORDERED: E-Z-HD 98% w/w 340GM SUSP BTL As Ordered ONE (10:11)
[2018-11-22] MEDS: LISINOPRIL 10 MG TAB PO SCH (10:51)
[2018-11-22] MEDS: PANTOPRAZOLE 40MG INJ (PROTONIX) (C9113) IV SCH (10:51)
[2018-11-22] MEDS: APIXABAN 5 MG TAB (ELIQUIS) PO SCH ×2 (10:51→21:18)
[2018-11-22] MEDS: SERTRALINE 100 MG TAB PO SCH (10:51)
--- NOTE | 2018-11-22 16:48 | REP ---
Upper GI air contrast The procedure was performed under the direct supervision of Dr. Tijerina. The images were reviewed with Dr. Tijerina The activities director scouting film shows no organomegaly or pathological masses. The intestinal gas pattern is non-specific. The patient is status post right hip arthroplasty Liquid barium and gas producing crystals were given in the erect position as well as liquid barium in the prone oblique position in order to perform a double contrast upper GI examination. The oral and pharyngeal stages of deglutition are unremarkable. Esophageal transport is prompt and efficient and there is no esophagitis, stricture or mucosal ring. Is a small hiatal hernia. Gastroesophageal reflux is not demonstrated on this examination. The stomach bailey are normally outlined . The rugal folds are smooth and regular. There is no gastritis neoplasm or ulcer disease. The duodenal bailey are normally outlined . The mucosal folds are smooth and regular. There is no duodenitis pancreatitis peptic ulcer disease or neoplasm. The visualized portion of the proximal small bowel appears normal in course and caliber. There is a diverticulum seen in the descending portion of the duodenum. Impression: 1. There is a small hiatal hernia. 2. There is a diverticulum in the descending portion of the duodenum. 1.4 minutes of fluoro time was utilized for this procedure. Reviewed by ANALISA Ross 11/22/2018 04:35 P Electronically Signed by Jaspal Tijerina MD 11/22/2018 04:39 P
[2018-11-22] MEDS: ACETAMINOPHEN 650MG ER TAB (TYLENOL ARTHRITIS) PO PRN (22:35)
[2018-11-22] MEDS: GI COCKTAIL 50ML BTL(HYOSCYAMINE/MAALOX/LIDOCAINE VISCOUS)(1:3:1) PO PRN (23:08)
[2018-11-23] VITALS: BP 140/98
[2018-11-23 04:00] VITALS: BP 119/76
[2018-11-23] MEDS: LEVOTHYROXINE 88MCG TABLET (0.088 MG) PO SCH (06:11)
[2018-11-23 06:34] LABS: BASO % 0.8 % (0.0-1.0); EOS # 0.1 10^3/uL (0.0-0.5); HEMATOCRIT 36.5 % (42.0-52.0); HEMOGLOBIN 12.5 g/dl (13.5-17.5); LYMPH # 1.1 10^3/uL (1.5-5.0); LYMPH % 21.3 % (24.0-44.0); MEAN CORPUSCULAR HEMOGLOBIN 32.8 pg (27.0-33.0); MEAN CORPUSCULAR HGB CONC 34.2 g/dl (32.0-36.5); MEAN CORPUSCULAR VOLUME 95.8 fl (80.0-96.0); MONO # 0.5 10^3/uL (0.0-0.8); MONO % 10.2 % (0.0-5.0); NEUTROPHILS # 3.4 10^3/uL (1.5-8.5); NEUTROPHILS % 65.4 % (36.0-66.0); PLATELET COUNT, AUTOMATED 106 10^3/uL (150-450); RED BLOOD COUNT 3.81 10^6/uL (4.30-6.10); WHITE BLOOD COUNT 5.2 10^3/uL (4.0-10.0)
[2018-11-23 07:05] LABS: ALBUMIN 3.4 GM/DL (3.2-5.2); ALT/SGPT 14 U/L (12-78); BILIRUBIN,TOTAL 0.6 MG/DL (0.2-1.0); BLOOD UREA NITROGEN 11 MG/DL (7-18); CARBON DIOXIDE LEVEL 28 MEQ/L (21-32); CHLORIDE LEVEL 106 MEQ/L (98-107); CREATININE FOR GFR 0.97 MG/DL (0.70-1.30); GLOMERULAR FILTRATION RATE > 60.0 (>56); GLUCOSE, FASTING 87 MG/DL (70-100); POTASSIUM SERUM 4.1 MEQ/L (3.5-5.1); SODIUM LEVEL 140 MEQ/L (136-145); TOTAL PROTEIN 6.3 GM/DL (6.4-8.2)
[2018-11-23 08:00] VITALS: BP 140/97
[2018-11-23 09:37] VITALS: BP 140/97
[2018-11-23] MEDS: LISINOPRIL 10 MG TAB PO SCH (09:37)
[2018-11-23] MEDS: APIXABAN 5 MG TAB (ELIQUIS) PO SCH (09:37)
[2018-11-23] MEDS: SERTRALINE 100 MG TAB PO SCH (09:38)
[2018-11-23] MEDS: GI COCKTAIL 50ML BTL(HYOSCYAMINE/MAALOX/LIDOCAINE VISCOUS)(1:3:1) PO PRN (09:38)
[2018-11-23] MEDS: PANTOPRAZOLE 40MG INJ (PROTONIX) (C9113) IV SCH (09:38)
[2018-11-23 12:00] VITALS: BP 122/88
[2018-11-23] MEDS ORDERED: WARF-23 PO (13:03)
[2018-11-23] MEDS ORDERED: CARD120C3 PO (13:03)
--- NOTE | 2018-11-23 16:31 | DSES ---
DATE OF ADMISSION: 11/20/2018 DATE OF DISCHARGE: 11/23/2018 REASON FOR ADMISSION: Mr. Thompson was admitted with new onset atrial fibrillation, epigastric discomfort, substernal discomfort. He has been drinking a fair amount and was intoxicated at the time of admission with a blood alcohol level of 273. He had lost his recently and has been drinking heavily since and admittedly not taking good care of himself. His blood urea nitrogen (BUN) and creatinine were reasonable. He was not hyperthyroid. He was not anemic particularly, though his hemoglobin did slide to 12.5 by the time of discharge. He was treated with diltiazem IV on a drip and changed to oral intermittent dosing and then has been a day on long-acting diltiazem CD and is ready for discharge. He does not think he can sustain the expense of taking Eliquis which had been prescribed before. He had had a coupon that he had received from his primary care provider, THERESA Cruz, but that ran out a month ago and he could not afford to get the medicine last month so he was without Eliquis. In the hospital, he had some substernal chest discomfort which was relieved with gastrointestinal (GI) cocktail and thought to have some gastritis. He has been taking aspirin as a way to reduce his cardiovascular/stroke risk and this will need to be discontinued as he starts warfarin as an outpatient. PHYSICAL EXAMINATION: He is alert, pleasant, obviously still grieving over the loss of his and financial distress since he is going to be losing his house soon. He can not afford to pay taxes on it, etcetera. On the day of discharge, his vital signs were blood pressure 140/97, pulse 90-91 and temperature 97.6. ASSESSMENT: 1. New onset atrial fibrillation with rapid ventricular response, now improved. 2. Gastritis. 3. Problem with alcohol use. 4. Hypertension. 5. 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 PLAN: He will be discharged on: - warfarin 5 mg daily - diltiazem 240 daily and controlled-release product - omeprazole 20 daily - sertraline 200 mg will be continued - He will resume his lisinopril 10/12.5 daily. - levothyroxine 88 mcg daily - Tylenol with codeine #4 one four times a day as needed for pain has been prescribed before admission and may be resumed upon discharge - vitamin D3 1000 units daily can be continued Activity will be as tolerated. He will receive some information on stable vitamin K dietary regimen. He will need to be seen in followup within the next week for a check of his prothrombin time/international normalized ratio (INR) and he will certainly require periodic adjustment of his warfarin dose going forward. We will leave the decision to arrange a cardiology consultation to his primary care provider after discharge.
== END 2018-11-23 14:32 | disposition home or self-care (01) | DRG 310 ==
LOC: M ED 23:37 → M ED INP 11-20 05:53 → M PCU 11-20 06:53
PROVIDERS: ADMIT Internal Medicine; ATTEND Family Medicine
DX: I48.91 Unspecified atrial fibrillation (principal); K29.70 Gastritis, unspecified, without bleeding; R91.8 Other nonspecific abnormal finding of lung field; F10.129 Alcohol abuse with intoxication, unspecified; I10 Essential (primary) hypertension; Z79.899 Other long term (current) drug therapy; F43.21 Adjustment disorder with depressed mood; E55.9 Vitamin D deficiency, unspecified; E03.9 Hypothyroidism, unspecified; K21.9 Gastro-esophageal reflux disease without esophagitis; Z86.718 Personal history of other venous thrombosis and embolism; Z86.711 Personal history of pulmonary embolism; Z59.8 Other problems related to housing and economic circumstances; M19.90 Unspecified osteoarthritis, unspecified site; E78.5 Hyperlipidemia, unspecified; F17.220 Nicotine dependence, chewing tobacco, uncomplicated; F12.90 Cannabis use, unspecified, uncomplicated; Z91.14 Patient's other noncompliance with medication regimen

== ENCOUNTER → 2018-12-05 | Outpatient (REF) | payer MEDICARE ==
[~2018-12-05] MED LIST changes: +ASPI81CH33 PO; +CARD120C3 PO; +WARF-23 PO
== END ==
LOC: M SFHCADAM 14:35
PROVIDERS: ATTEND Physician Assistant Medical
DX: Z79.01 Long term (current) use of anticoagulants (principal); Z53.8 Procedure and treatment not carried out for other reasons

== ENCOUNTER 2019-02-17 13:21 | Inpatient (IN) | payer MEDICARE ==
[2019-02-17] VITALS (8 sets, daily range): BP systolic 87–122; BP diastolic 59–73
[~2019-02-17] VITALS: Ht 185.4 cm; Wt 90.8 kg
[~2019-02-17 13:21] MED LIST changes: +OMEP-172 PO; -OMEP20CA4 PO; -OMEP40CA2 PO; +OMEP40CA97 PO
[2019-02-17] MEDS ORDERED: ASPIRIN 81 MG CHEW TABLET PO ONE (14:00)
[2019-02-17] MEDS ORDERED: NS 1,000 ML IV ONE (14:00)
[2019-02-17] MEDS ORDERED: PANTOPRAZOLE 40MG INJ (PROTONIX) (C9113) IV ONE ×2 (14:00→17:15)
[2019-02-17 14:13] LABS: HEMATOCRIT 30.4 % (42.0-52.0); MEAN CORPUSCULAR HGB CONC 32.9 g/dl (32.0-36.5); MEAN CORPUSCULAR VOLUME 88.1 fl (80.0-96.0); PLATELET COUNT, AUTOMATED 306 10^3/uL (150-450); RED BLOOD COUNT 3.45 10^6/uL (4.30-6.10); WHITE BLOOD COUNT 16.7 10^3/uL (4.0-10.0)
[2019-02-17 14:41] LABS: LYMPHOCYTES 4 % (16-44); METAMYELOCYTES 1 % (0-0); MONOCYTES 1 % (0-5)
[2019-02-17 14:42] LABS: ANISOCYTOSIS 1+; HYPOCHROMASIA 1+; NEUTROPHILS 89 % (28-66); PLATELET ESTIMATE NORMAL (NORMAL); POIKILOCYTOSIS 1+
[2019-02-17 14:42] LABS: LIPASE 319 U/L (73-393); NT-PRO BNP 1569 PG/ML (<125)
[2019-02-17 14:45] LABS: PROTHROMBIN TIME > 150.0 SECONDS (11.8-14.0)
[2019-02-17 15:02] LABS: ALBUMIN 1.5 GM/DL (3.2-5.2); ALT/SGPT 12 U/L (12-78); BILIRUBIN,DIRECT 0.2 MG/DL (0.0-0.2); BILIRUBIN,TOTAL 0.4 MG/DL (0.2-1.0); BLOOD UREA NITROGEN 29 MG/DL (7-18); CALCIUM LEVEL 8.3 MG/DL (8.5-10.1); CARBON DIOXIDE LEVEL 31 MEQ/L (21-32); CHLORIDE LEVEL 85 MEQ/L (98-107); CK-MB VALUE MASS < 1.0 NG/ML (<3.6); CPK CREATINE PHOSPHOKINASE 15 U/L (39-308); CREATININE FOR GFR 0.99 MG/DL (0.70-1.30); GLOMERULAR FILTRATION RATE > 60.0 (>56); GLUCOSE, FASTING 125 MG/DL (70-100); MB/CK RELATIVE INDEX 6.67 (< OR =4); POTASSIUM SERUM 2.6 MEQ/L (3.5-5.1); SODIUM LEVEL 127 MEQ/L (136-145); TOTAL PROTEIN 6.9 GM/DL (6.4-8.2); TROPONIN I < 0.02 NG/ML (< 0.10)
--- NOTE | 2019-02-17 15:22 | REP ---
Clinical: Chest pain. Technique: PA and lateral. Comparison: 11/20/2018. Findings: Right lower lobe infiltrate and pleural effusion represent new finding compared to prior examination. Remainder examination appears normal. Impression: Large right lower lobe infiltrate and presumed pleural effusion. Electronically Signed by Frederick Bryant MD 02/17/2019 03:12 P
[2019-02-17] MEDS ORDERED: ISOVUE-370 76% 100ML VIAL (Q9967) As Ordered ONE (15:48)
[2019-02-17] MEDS ORDERED: POTASSIUM CHLORIDE 10 MEQ SR TABLET PO ONE ×3 (16:00→23:15)
[2019-02-17] MEDS ORDERED: DILT120C77 PO (16:04)
[2019-02-17] MEDS ORDERED: WARF-21 PO (16:04)
[2019-02-17] MEDS ORDERED: WARF-23 PO (16:04)
--- NOTE | 2019-02-17 16:31 | REP ---
Clinical: Pleural effusion. Comparison: 11/20/2018. Technique: Axial contrast enhanced images from the the the thoracic inlet to the upper abdomen with coronal and sagittal re-formations using 100 ml Isovue 370 intravenous contrast material. Findings: Left apical mass with spiculated margins has increased in size causing destructive changes to the left rib with small nondisplaced pathologic fracture. Mass lesion measures roughly 5.3 cm maximal diameter and 6 cm in craniocaudal length. Complex heterogeneous multiloculated right lower lobe mass / consolidation/malignant effusion represents a new finding as compared to prior examination measuring greater than 16 x 8.1 cm AP/transverse diameter and 13 cm in craniocaudal length. No pneumothorax. Mediastinal and hilar adenopathy is appreciated. Thoracic aorta appears normal. Heart and pericardium appear relatively normal. Pulmonary vasculature appears relatively normal. Healed anterior right 5th-7th rib fractures noted. Limited upper abdomen demonstrates normal bilateral adrenal glands. 3.7 cm lobulated cystic lesion in the right hepatic lobe is nonspecific but unchanged compared to prior examination. Impression: 1. Left apical mass has increased in size and now invades the left first rib causing pathologic nondisplaced fracture. 2. Large complex right lower lobe mass / malignant effusion / consolidation. 3. Mediastinal and hilar adenopathy. Electronically Signed by Frederick Bryant MD 02/17/2019 04:22 P
--- NOTE | 2019-02-17 17:37 | ECGEPIP ---
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
[2019-02-17] MEDS ORDERED: PHYTONADIONE INJection 5 MG in NS 50 ML IV STA (17:53)
--- NOTE | 2019-02-17 17:56 | HPEPDOC ---
[facility] Medical History & Physical Date of Admission Feb 17, 2019 Date of Service: Feb 17, 2019 Attending Physician: MARYANN CORNELIUS MD History and Physical CHIEF COMPLAINT: Fatigue HISTORY OF PRESENT ILLNESS: 58-year-old male with past medical history of atrial fibrillation on Coumadin, hypertension, diabetes mellitus, undiagnosed lung mass presents from PCPs office for fatigue. Patient went to his PCPs office today to get his INR checked, last check was 3 weeks ago, patient does not remember what his level was at that time, doesn't recall. He was advised to increase, decrease to keep his Coumadin dose at the same level. Patient reports feeling significantly fatigued with intermittent fevers, chills and night sweats over the past few weeks, which have left him very fatigued with minimal oral intake further worsening his fatigue. Patient reports that he has continued taking all of his medications including the Coumadin and diuretics despite having minimal oral intake. He is unable to recall the last time he had a full meal. He is on an sure at home, reports it causes him to have nausea/vomiting, so he has not been drinking that either. He reports blood-tinged sputum along with dark stool over the past 24 hours. In the ED is found to have significantly elevated PT, unable to check INR due to the severe lab abnormalities, received FFP in the ED. Patient reports that he was told about his lung mass 2 months ago, he did not want any workup done at the time, today he wishes to have his lung mass diagnosed and treated. He also wishes to change his DNR/DNI status and become full code at this time. 10 point review of system is negative except for above PAST MEDICAL HISTORY: 1. Atrial fibrillation. 2. Lung mass. 3. Hypertension. 4. Diabetes mellitus. PAST SURGICAL HISTORY: None SOCIAL HISTORY: Ex-smoker, one to 2 pack per day for over 20 years, quit 8 years ago. Denies alcohol use. Denies drug use FAMILY HISTORY: Mother with lung cancer 8 years ago ALLERGIES: Please see below. HOME MEDICATIONS: Please see below. PHYSICAL EXAMINATION: VITAL SIGNS: Please see below. GENERAL: Fatigue, frail, cachectic HEENT: Dry mucous membranes with blood-tinged lips NECK: Supple CARDIOVASCULAR EXAMINATION: Irregularly irregular, tachycardic RESPIRATORY EXAMINATION: Scattered rhonchi, no wheezing ABDOMINAL EXAMINATION: Soft, mild tenderness, nondistended, positive bowel sounds EXTREMITIES: Range of motion intact SKIN: No rash NEUROLOGICAL EXAMINATION: Alert and oriented 3, no focal deficits PSYCHIATRIC EXAMINATION: Calm and cooperative LABORATORY DATA: See below. IMAGING: CT chest with lung mass and right lower lobe consolidation/mass MICROBIOLOGY: Please see below. ASSESSMENT: 58-year-old male with past medical history of undiagnosed lung mass, atrial fibrillation on Coumadin, hypertension, diabetes mellitus, presents with B symptoms, failure to thrive and severely elevated PT with signs of bleeding. PLAN: 1. Bleeding. On Coumadin, last INR check was 3 weeks ago, patient unsure of level, extremely poor intake over the past few weeks, reportedly compliant with meds, PT greater than 120, unable to check INR, status post FFP in the ED, bleeding from IV insertion site, reports hemoptysis and dark/bloody stool over the past 24 hours, KCentra ordered, vitamin K 5 mg IV 1, repeat an INR, IV hydration, Protonix 80 mg IV 1 followed by 40 mg IV twice a day, stool OB pending. 2. Undiagnosed lung mass. Family history of lung cancer, personal history of smoking, likely undiagnosed primary lung malignancy, patient aware if mass for past 2 months, initially did not want any workup, now wishes to undergo workup for diagnosis and treatment, changed his CODE STATUS to full code today. CT chest reviewed, possible consolidation in the right lower lobe, empiric Zosyn for possible postobstructive pneumonia, respiratory viral panel, pro-calcitonin and blood cultures pending. 3. Electrolyte abnormalities. hypovolemic hyponatremia, likely due to poor oral intake and HCTZ, hold diuretics, continue normal saline 100 mL per hour. Hypokalemia, likely due to vomiting and HCTZ, supplement by mouth and IV. 4. Atrial fibrillation. Hold Coumadin, continue Cardizem for rate control. DVT prophylaxis: TEDs. GI prophylaxis: Protonix Vital Signs Vital Signs Date Time Temp Pulse Resp B/P (MAP) Pulse Ox O2 Delivery O2 Flow Rate FiO2 02/17/19 14:20 50 97/55 02/17/19 13:22 95.8 69 84 Room Air Laboratory Data Labs 24H Laboratory Tests 2 02/17/19 13:48: Prothrombin Time > 150.0H, Prothromb Time International Ratio , AN-Oli-L-Type Natriuretic Peptide 1569H, Lipase 319 02/17/19 13:50: Nucleated Red Blood Cells % (auto) 0.0, Neutrophils 89H, Band Neutrophils 5, Lymphocytes (Manual) 4L, Monocytes (Manual) 1, Metamyelocytes 1H, Hypochromasia 1+, Poikilocytosis 1+, Anisocytosis 1+, Platelet Estimate NORMAL, Anion Gap 11, Glomerular Filtration Rate > 60.0, Calcium Level 8.3L, Total Bilirubin 0.4, Direct Bilirubin 0.2, Aspartate Amino Transf (AST/SGOT) 21, Alanine Aminotransferase (ALT/SGPT) 12, Alkaline Phosphatase 100, Total Creatine Kinase 15L, Creatine Kinase MB < 1.0, Creatine Kinase MB Relative Index 6.67H, Troponin I < 0.02, Total Protein 6.9, Albumin 1.5L, Albumin/Globulin Ratio 0.28L, Thyroid Stimulating Hormone (TSH) 3.360 CBC/BMP Laboratory Tests 02/17/19 13:50 Home Medications Scheduled Cholecalciferol (Vitamin D3) (Vitamin D3) 1,000 Unit Tab, 1,000 UNIT PO DAILY Diltiazem HCl (Diltiazem 24Hr ER) 120 Mg Cap.er.24h, 240 MG PO QHS Levothyroxine Sodium (Levoxyl) 88 Mcg Tab, 88 MCG PO QHS Lisinopril/Hydrochlorothiazide (Lisinopril-Hctz 10-12.5 mg Tab) 1 Tab Tab, 1 TAB PO DAILY Omeprazole (Omeprazole) 20 Mg Cap, 20 MG PO DAILY Sertraline HCl (Sertraline HCl) 100 Mg Tab, 200 MG PO DAILY Warfarin Sodium (Warfarin Sodium) 5 Mg Tablet, 5 MG PO Q2D ALTERNATES WITH 7.5MG Warfarin Sodium (Warfarin Sodium) 7.5 Mg Tablet, 7.5 MG PO Q2D ALTERNATES WITH 5MG Scheduled PRN Acetaminophen with Codeine (Tylenol with Codeine #4 Tablet) 1 Tab Tab, 1 TAB PO QID PRN for PAIN Allergies Coded Allergies: No Known Allergies (Verified , 04/07/09) A-FIB/CHADSVASC A-FIB History Current/History of A-Fib/PAF?: Yes Current PO Anticoag Therapy: Yes MARYANN CORNELIUS MD Feb 17, 2019 17:56
[2019-02-17] MEDS ORDERED: PIPERACILLIN/TAZOBACTAM SOD 3.375 GM in D5W MINI-BAG PLUS 50 ML IV ONE (18:00)
[2019-02-17 18:34] LABS: PARTIAL THROMBOPLASTIN TIME > 120.0 SECONDS (25.0-38.4); PROTHROMBIN TIME > 150.0 SECONDS (11.8-14.0)
[2019-02-17 18:40] LABS: BLOOD UREA NITROGEN 27 MG/DL (7-18); CALCIUM LEVEL 7.6 MG/DL (8.5-10.1); CARBON DIOXIDE LEVEL 29 MEQ/L (21-32); CHLORIDE LEVEL 89 MEQ/L (98-107); GLOMERULAR FILTRATION RATE > 60.0 (>56); GLUCOSE, FASTING 125 MG/DL (70-100); POTASSIUM SERUM 2.3 MEQ/L (3.5-5.1); SODIUM LEVEL 129 MEQ/L (136-145)
[2019-02-17] MEDS: NS 1,000 ML IV SCH (18:49)
[2019-02-17 19:18] LABS: HEMATOCRIT 24.2 % (42.0-52.0); MEAN CORPUSCULAR HEMOGLOBIN 29.7 pg (27.0-33.0); MEAN CORPUSCULAR HGB CONC 33.5 g/dl (32.0-36.5); MEAN CORPUSCULAR VOLUME 88.6 fl (80.0-96.0); PLATELET COUNT, AUTOMATED 233 10^3/uL (150-450); RED BLOOD COUNT 2.73 10^6/uL (4.30-6.10); WHITE BLOOD COUNT 11.3 10^3/uL (4.0-10.0)
[2019-02-17 19:21] LABS: HEMOGLOBIN 8.1 g/dl (13.5-17.5)
[2019-02-17] MEDS: KCL 10MEQ/100ML SWI (KRUN) 10 MEQ in IV 1 EA IV SCH ×4 (20:44→23:54)
[2019-02-17] MEDS ORDERED: PROTHROMBIN COMPLEX CONCEN IV ONE (21:00)
[2019-02-17] MEDS: PIPERACILLIN/TAZOBACTAM SOD 3.375 GM in D5W MINI-BAG PLUS 50 ML IV SCH (21:49)
[2019-02-17 22:20] LABS: HEMATOCRIT 25.3 % (42.0-52.0); HEMOGLOBIN 8.4 g/dl (13.5-17.5); MEAN CORPUSCULAR HEMOGLOBIN 29.5 pg (27.0-33.0); MEAN CORPUSCULAR HGB CONC 33.2 g/dl (32.0-36.5); MEAN CORPUSCULAR VOLUME 88.8 fl (80.0-96.0); PLATELET COUNT, AUTOMATED 247 10^3/uL (150-450); RED BLOOD COUNT 2.85 10^6/uL (4.30-6.10); WHITE BLOOD COUNT 11.1 10^3/uL (4.0-10.0)
--- NOTE | 2019-02-17 22:29 | REPVR ---
PROCEDURE INFORMATION: Exam: CT Abdomen And Pelvis Without Contrast Exam date and time: 02/17/2019 9:16 PM Age: 58 years old Clinical history: Abdominal pain; Generalized; Additional info: R/O hematoma TECHNIQUE: Imaging protocol: Computed tomography of the abdomen and pelvis without contrast. Radiation optimization: All CT scans at this facility use at least one of these dose optimization techniques: automated exposure control; mA and/or kV adjustment per patient size (includes targeted exams where dose is matched to clinical indication); or iterative reconstruction. COMPARISON: CT ABD/PEL W/IV CONTRAST ONLY 11/20/2018 1:19 AM FINDINGS: Pleural space: Pleural calcification left lung base. Consolidation in right middle and lower lobes with air bronchogram and right pleural effusion. Liver: 3.9 x 2.8 cm low dense right hepatic lesion which is stable. Gallbladder and bile ducts: The gallbladder wall appears thickened however it is contracted and therefore not well assessed. Pancreas: Pancreas is unremarkable. Spleen: Splenomegaly with splenic length of 18 cm. Adrenals: Mild prominence of the adrenal glands which is a stable finding. Kidneys and ureters: X-ray contrast is seen within both kidneys due to contrast enhanced study from earlier in the day. No hydronephrosis. Stomach and bowel: There is no evidence of intestinal obstruction. Appendix: No evidence of appendicitis. Intraperitoneal space: Unremarkable. No free air. No significant fluid collection. Vasculature: There is no evidence of an abdominal aortic aneurysm. Lymph nodes: Unremarkable. No enlarged lymph nodes. Bladder: Urinary bladder is distended with x-ray contrast which obscures detail of the bladder wall. Reproductive: Unremarkable as visualized. Bones/joints: Total right hip replacement. Multiple healed right lower anterior rib fractures. Schmorl's node with possible compression superior end plate of T12 with mild retropulsion of the posterior margin is stable. Marked sclerosis due to endplate degeneration is again seen at the L2-3 level. Soft tissues: Unremarkable. IMPRESSION: 1. Consolidation is seen in the right middle and lower lobes with associated pleural effusion most likely due to pneumonia and/or atelectasis among other etiologies. 2. The gallbladder wall is thickened however it is contracted which may account for this appearance. 3. Stable hepatic cyst.Benign. No further follow-up. 4. Splenomegaly which has increased in comparison to the 11/20/2018 CT. 5. No intraperitoneal or retroperitoneal hematoma. Electronically signed by: Emily Harrington On 02/17/2019 22:28:43 PM
[2019-02-17 22:31] LABS: INR 1.27; PROTHROMBIN TIME 15.6 SECONDS (11.8-14.0)
[2019-02-17 22:32] LABS: PARTIAL THROMBOPLASTIN TIME 44.9 SECONDS (25.0-38.4)
[2019-02-17 22:54] LABS: ALBUMIN 1.4 GM/DL (3.2-5.2); ALT/SGPT 12 U/L (12-78); BILIRUBIN,TOTAL 0.5 MG/DL (0.2-1.0); BLOOD UREA NITROGEN 24 MG/DL (7-18); CARBON DIOXIDE LEVEL 30 MEQ/L (21-32); CHLORIDE LEVEL 90 MEQ/L (98-107); CREATININE FOR GFR 0.74 MG/DL (0.70-1.30); GLOMERULAR FILTRATION RATE > 60.0 (>56); GLUCOSE, FASTING 99 MG/DL (70-100); MAGNESIUM LEVEL 2.2 MG/DL (1.8-2.4); POTASSIUM SERUM 3.1 MEQ/L (3.5-5.1); SODIUM LEVEL 129 MEQ/L (136-145); TOTAL PROTEIN 5.8 GM/DL (6.4-8.2)
[2019-02-17] MEDS: LEVOTHYROXINE 88MCG TABLET (0.088 MG) PO SCH (23:54)
[2019-02-18] VITALS (18 sets, daily range): BP systolic 83–109; BP diastolic 56–75
[2019-02-18] MEDS: KCL 10MEQ/100ML SWI (KRUN) 10 MEQ in IV 1 EA IV SCH ×2 (00:54→01:57)
[2019-02-18] MEDS ORDERED: KCL 10MEQ IN STERILE WATER 100ML As Ordered ONE (01:55)
[2019-02-18] MEDS: PIPERACILLIN/TAZOBACTAM SOD 3.375 GM in D5W MINI-BAG PLUS 50 ML IV SCH ×4 (03:08→20:35)
[2019-02-18 05:07] LABS: HEMATOCRIT 24.6 % (42.0-52.0); HEMOGLOBIN 8.2 g/dl (13.5-17.5); MEAN CORPUSCULAR HEMOGLOBIN 29.2 pg (27.0-33.0); MEAN CORPUSCULAR HGB CONC 33.3 g/dl (32.0-36.5); MEAN CORPUSCULAR VOLUME 87.5 fl (80.0-96.0); PLATELET COUNT, AUTOMATED 256 10^3/uL (150-450); RED BLOOD COUNT 2.81 10^6/uL (4.30-6.10); WHITE BLOOD COUNT 13.7 10^3/uL (4.0-10.0)
[2019-02-18 05:34] LABS: ALBUMIN 1.4 GM/DL (3.2-5.2); ALT/SGPT 17 U/L (12-78); BILIRUBIN,TOTAL 0.9 MG/DL (0.2-1.0); BLOOD UREA NITROGEN 21 MG/DL (7-18); CARBON DIOXIDE LEVEL 26 MEQ/L (21-32); CHLORIDE LEVEL 93 MEQ/L (98-107); CREATININE FOR GFR 0.76 MG/DL (0.70-1.30); GLOMERULAR FILTRATION RATE > 60.0 (>56); GLUCOSE, FASTING 98 MG/DL (70-100); MAGNESIUM LEVEL 2.2 MG/DL (1.8-2.4); POTASSIUM SERUM 3.3 MEQ/L (3.5-5.1); SODIUM LEVEL 129 MEQ/L (136-145); TOTAL PROTEIN 5.9 GM/DL (6.4-8.2)
[2019-02-18 05:42] LABS: CLOSTRIDIUM DIFFICILE PCR NEGATIVE (NEGATIVE)
[2019-02-18] MEDS: SERTRALINE 100 MG TAB PO SCH (08:13)
[2019-02-18] MEDS: NS 1,000 ML IV SCH (08:13)
[2019-02-18] MEDS: PANTOPRAZOLE 40MG INJ (PROTONIX) (C9113) IV SCH ×2 (08:13→20:35)
[2019-02-18] MEDS: VITAMIN D 1,000 INTERNATIONAL UNITS TABLET PO SCH (08:13)
[2019-02-18] MEDS: ENOXAPARIN 80 MG/0.8 ML SYRINGE (J1650) SC SCH ×2 (12:00→22:00)
--- NOTE | 2019-02-18 12:05 | IPNPDOC ---
Subjective Date Seen The patient was seen on 02/18/19. Subjective Chief Complaint/HPI Ezekiel this morning is c/o mid back pain and ant chest pain. He states that he has had mtp loose stools overnight. Nurse reports these as loose and light brown in color. He had good urine output overnight but this has slowed this morning. He reports that he stopped drinking alcohol 10-12 days ago when he appetite worsened, pain worsened and he began to have N/V. He states that he hasn't smoked marijuana in "several weeks". He states that he would like to find out what the mass in his chest is and what options are available to him for treatment. General: Reports: Fatigue Constitutional: Reports: Night Sweats; Denies: Chills, Fever Pulmonary: Reports: Dyspnea, Cough Cardiovascular: Reports: Chest Pain; Denies: Palpitations Gastrointestinal: Reports: Nausea, Diarrhea; Denies: Vomiting Musculoskeletal: Reports: Back Pain Neurological: Reports: Weakness Psych: Reports: Mood Normal Objective Physical Examination General Exam: Positive: Alert, Mild Distress ENT Exam: Positive: Mucous membr. moist/pink Chest Exam: Positive: Rhonchi (Few scattered rhonchi which improve with cough, diminished BS at the R base, + dullness to percussion, slightly diminished BS L ant chest); Negative: Clear to auscultation, Normal air movement Heart Exam: Positive: Tachycardic, Regular Rhythm; Negative: Rate Normal Abdomen Exam: Positive: Normal bowel sounds, BS Hyperactive, Soft; Negative: Tenderness (diffusely tender, no rebound or guarding) Extremity Exam: Negative: Edema Neuro Exam: Negative: Normal Speech Psych Exam: Positive: Mental status NL, Anxiety Assessment /Plan Problems (1) Sepsis Status: Acute Response to Treatment: Stable, Improving Discussed With: Nurse, Patient Problem Specific Plan: Monitor Clinically, Repeat Labs Problem Text: Pt admitted with RLL mass/effusion likely abscess vs aspiration given pts h/o emesis. D2 Zosyn. HR remains elevated, pressures soft, WBC up to 13.7, from 11. Cont with IVF NS @ 150 cc/hr will add K+ for replacement. (2) GI bleed Status: Acute Discussed With: Patient Problem Specific Plan: Monitor Clinically, Repeat Labs Problem Text: Hgb down to 8.2, he reports weeks of black stools, Hgb 10 on admission however pt admitted with poor oral intake and signs of hypovolemia. Transfuse if needed. Will need this further evaluated when stable. (3) A-fib Status: Chronic Response to Treatment: Stable Problem Specific Plan: Monitor Clinically Problem Text: Rate elevated, likely assoc with hypovolemia, he is on his HD cardizem 240 mg po daily, Monitor rates. INR elevated on admission, he was given Vit K for reversal, INR 1.27 this morning. Will start Lovenox 80n mg BID for prevention, especially given h/o mtp DVT/PE. (4) Lung mass Status: Chronic Response to Treatment: Worse Problem Text: Pt previously adamant that he have nothing done about the apical/mediastinal lung mass, on admission he has reversed this wish and would like at least additional testing and discussion about treatment options. At this point he is not medically stable enough to have this done, will work towards bx with IR when stable. Pt is aware of this plan. (5) Elevated INR Status: Resolved (6) Hyponatremia Status: Acute Problem Specific Plan: Monitor Clinically, Repeat Labs Problem Text: Na 127 on admission, 129 this morning. Pt on IVF NS 150 cc/hr (7) Hypokalemia Status: Acute Response to Treatment: Stable Problem Specific Plan: Monitor Clinically, Repeat Labs Problem Text: Will adjust IVF to attempt to correct this. (8) Pleural effusion Status: Acute Problem Text: Abscess vs aspiration on Zosyn IV, see above (9) Diarrhea Status: Acute Problem Specific Plan: Monitor Clinically Problem Text: Neg GI panel, neg C diff, will need endoscopy when stable. (10) DVT (deep venous thrombosis) Status: Chronic Response to Treatment: Stable Problem Specific Plan: Monitor Clinically Problem Text: h/o mtp DVT, will add Lovenox 80 mg BID until able to return to Warfarin, he has declined use of other anticoag d/t cost. (11) Alcohol abuse Status: Chronic Response to Treatment: Stable Problem Specific Plan: Monitor Clinically Problem Text: Pt with h/o alcohol abuse, reports last use 10-12 days ago. Plan/VTE VTE Prophylaxis Ordered?: Yes VS, I&O, 24H, Fishbone Vital Signs/I&O Vital Signs Date Time Temp Pulse Resp B/P (MAP) Pulse Ox O2 Delivery O2 Flow Rate FiO2 02/18/19 10:00 113 25 98/57 (71) 93 Nasal Cannula 4.0 02/18/19 08:00 97.1 I&O- Last 24 Hours up to 6 AM 02/18/19 06:00 Intake Total 2125 ml Output Total 825 ml Balance 1300 ml Laboratory Data 24H LABS Laboratory Tests 2 02/17/19 13:48: Prothrombin Time > 150.0H, Prothromb Time International Ratio , TO-Lrn-X-Type Natriuretic Peptide 1569H, Lipase 319 02/17/19 13:50: Nucleated Red Blood Cells % (auto) 0.0, Neutrophils 89H, Band Neutrophils 5, Lymphocytes (Manual) 4L, Monocytes (Manual) 1, Metamyelocytes 1H, Hypochromasia 1+, Poikilocytosis 1+, Anisocytosis 1+, Platelet Estimate NORMAL, Anion Gap 11, Glomerular Filtration Rate > 60.0, Calcium Level 8.3L, Total Bilirubin 0.4, Direct Bilirubin 0.2, Aspartate Amino Transf (AST/SGOT) 21, Alanine Aminotransferase (ALT/SGPT) 12, Alkaline Phosphatase 100, Total Creatine Kinase 15L, Creatine Kinase MB < 1.0, Creatine Kinase MB Relative Index 6.67H, Troponin I < 0.02, Total Protein 6.9, Albumin 1.5L, Albumin/Globulin Ratio 0.28L, Thyroid Stimulating Hormone (TSH) 3.360 02/17/19 17:51: Prothrombin Time > 150.0H, Prothromb Time International Ratio , Anion Gap 11, Glomerular Filtration Rate > 60.0, Calcium Level 7.6L, Activated Partial Thromboplast Time > 120.0*H 02/17/19 18:00: Lactic Acid Level 1.3 02/17/19 19:03: Nucleated Red Blood Cells % (auto) 0.0 02/17/19 22:00: Nucleated Red Blood Cells % (auto) 0.0, Prothrombin Time 15.6H, Prothromb Time International Ratio 1.27, Activated Partial Thromboplast Time 44.9H, Anion Gap 9, Glomerular Filtration Rate > 60.0, Calcium Level 8.0L, Magnesium Level 2.2, Total Bilirubin 0.5, Aspartate Amino Transf (AST/SGOT) 20, Alanine Aminotransferase (ALT/SGPT) 12, Alkaline Phosphatase 75, Total Protein 5.8L, Albumin 1.4L, Albumin/Globulin Ratio 0.32L 02/18/19 04:00: Clostridium difficile [id number] PRESUMPTIVE NEGATIVE, Clostridium difficile Toxin (PCR) NEGATIVE 02/18/19 04:48: Nucleated Red Blood Cells % (auto) 0.0, Anion Gap 10, Glomerular Filtration Rate > 60.0, Calcium Level 8.0L, Magnesium Level 2.2, Total Bilirubin 0.9#, Aspartate Amino Transf (AST/SGOT) 35, Alanine Aminotransferase (ALT/SGPT) 17, Alkaline Phosphatase 87, Total Protein 5.9L, Albumin 1.4L, Albumin/Globulin Ratio 0.31L CBC/BMP Laboratory Tests 02/17/19 13:50 02/17/19 17:51 02/17/19 19:03 02/17/19 22:00 02/18/19 04:48 Microbiology Microbiology 02/18/19 Gastrointestinal Tract Panel (PCR) - Final, Complete 02/18/19 Stool Occult Blood (MAR[facility]) - Final, Complete 02/17/19 Gram Stain - Final, Resulted 02/17/19 Sputum Culture, Resulted Pending 02/17/19 Blood Culture, Received Pending RAN PARRA PA-C Feb 18, 2019 12:05
[2019-02-18] MEDS: KCL 40MEQ in NS 1000ML 1,000 ML IV SCH ×2 (12:26→20:35)
--- NOTE | 2019-02-18 19:52 | ECHO ---
DATE OF PROCEDURE: 02/18/2019 REFERRING PHYSICIAN: Dr. Medina INDICATION: Dyspnea. Height 185 cm, weight 82 kg. DIMENSIONS: IVS: 1.3 LV: 5.4 LVPW: 1.2 LA: 4.4 Aorta: 3.7 IVC: 1.6 FINDINGS: The study is of poor technical quality with very limited views. The patient is in atrial fibrillation with ventricular rate between 105 and 120 beats per minute. Left ventricle is normal size. There is mild left ventricular hypertrophy. Overall there is probably normal or near normal left ventricular systolic function based on limited views. Right ventricle appears grossly normal. Both atria are severely enlarged. Aortic valve appears normal. It is tricuspid and has preserved mobility. Mild sclerosis is noted. Mitral, tricuspid and pulmonic valves appear normal. No pericardial effusion is noted. Inferior vena cava is normal size. Aortic root is normal. Aortic arch and abdominal aorta were not well seen. Doppler interrogation reveals no aortic stenosis and trace insufficiency. There is competent mitral, tricuspid and pulmonic valve. Evaluation of diastolic function is inconclusive due to underlying atrial fibrillation. CONCLUSIONS: 1. Study is of very limited technical quality. 2. Normal left ventricular (LV) size with mild left ventricular hypertrophy (LVH) and probably normal or near normal LV systolic function. 3. Severe biatrial enlargement. 4. No hemodynamically significant valvular disease. 5. Likely normal central venous pressure. 6. Unable to estimate pulmonary artery pressure. COMMENT: Subacute bacterial endocarditis (SBE) prophylaxis is not recommended.
[2019-02-18] MEDS: LEVOTHYROXINE 88MCG TABLET (0.088 MG) PO SCH (20:35)
[2019-02-18] MEDS: LOPERAMIDE 2 MG CAPLET PO PRN (23:38)
[2019-02-19] VITALS (21 sets, daily range): BP systolic 93–138; BP diastolic 28–83
[2019-02-19] MEDS: PIPERACILLIN/TAZOBACTAM SOD 3.375 GM in D5W MINI-BAG PLUS 50 ML IV SCH ×4 (03:31→20:17)
[2019-02-19 05:14] LABS: BASO % 0.3 % (0.0-1.0); EOS % 0.3 % (0.0-3.0); HEMATOCRIT 24.6 % (42.0-52.0); LYMPH # 0.7 10^3/uL (1.5-5.0); LYMPH % 7.4 % (24.0-44.0); MEAN CORPUSCULAR HEMOGLOBIN 29.1 pg (27.0-33.0); MEAN CORPUSCULAR HGB CONC 32.5 g/dl (32.0-36.5); MEAN CORPUSCULAR VOLUME 89.5 fl (80.0-96.0); MONO # 0.4 10^3/uL (0.0-0.8); MONO % 3.7 % (0.0-5.0); NEUTROPHILS # 8.4 10^3/uL (1.5-8.5); PLATELET COUNT, AUTOMATED 258 10^3/uL (150-450); RED BLOOD COUNT 2.75 10^6/uL (4.30-6.10)
[2019-02-19] MEDS: LOPERAMIDE 2 MG CAPLET PO PRN ×3 (05:17→23:35)
[2019-02-19] MEDS: KCL 40MEQ in NS 1000ML 1,000 ML IV SCH (05:18)
[2019-02-19 05:25] LABS: INR 1.57; PROTHROMBIN TIME 18.5 SECONDS (11.8-14.0)
[2019-02-19 05:48] LABS: ALBUMIN 1.4 GM/DL (3.2-5.2); ALT/SGPT 14 U/L (12-78); BILIRUBIN,TOTAL 0.4 MG/DL (0.2-1.0); BLOOD UREA NITROGEN 13 MG/DL (7-18); CALCIUM LEVEL 7.8 MG/DL (8.5-10.1); CARBON DIOXIDE LEVEL 26 MEQ/L (21-32); CHLORIDE LEVEL 102 MEQ/L (98-107); CREATININE FOR GFR 0.75 MG/DL (0.70-1.30); GLOMERULAR FILTRATION RATE > 60.0 (>56); GLUCOSE, FASTING 98 MG/DL (70-100); POTASSIUM SERUM 3.4 MEQ/L (3.5-5.1); SODIUM LEVEL 135 MEQ/L (136-145)
[2019-02-19] MEDS: PANTOPRAZOLE 40MG INJ (PROTONIX) (C9113) IV SCH ×2 (07:53→20:16)
[2019-02-19] MEDS: VITAMIN D 1,000 INTERNATIONAL UNITS TABLET PO SCH (07:54)
[2019-02-19] MEDS: SERTRALINE 100 MG TAB PO SCH (07:54)
[2019-02-19] MEDS ORDERED: ACETAMINOPHEN TAB 650MG DOSE (2X325MG) PO PRN (08:15)
--- NOTE | 2019-02-19 08:21 | IPNPDOC ---
Subjective Date Seen The patient was seen on 02/19/19. Subjective Chief Complaint/HPI elevated INR, hypokalemia, HTN Events since last encounter patient had multiple loose dark BM overnight. + hemoccult. negative GI panel. Currently on clear liquids. Has remained tachycardic overnight. c/o LBP. Patient usually takes Tylenol with codeine prn pain. Patient admits to nausea and is fearful of eating due to multiple amounts of loose stools for several months. Oxygen weaned down to RA. Patient admits to dyspnea with exertion. Constitutional: Reports: Weakness, Fatigue; Denies: Chills, Fever, Night Sweats Pulmonary: Reports: Dyspnea, Cough Cardiovascular: Denies: Chest Pain, Palpitations, Orthopnea, Paroxysmal Noc. Dyspnea, Edema, Lt Headedness Gastrointestinal: Reports: Nausea, Diarrhea, Melena; Denies: Vomiting, Abdominal Pain Genitourinary: Denies: Dysuria, Frequency, Incontinence, Retention Objective Physical Examination General Exam: Positive: Alert, Mild Distress ENT Exam: Positive: Mucous membr. moist/pink Chest Exam: Positive: Wheezing, Diminished (RLL); Negative: Clear to auscultation, Normal air movement Heart Exam: Positive: Tachycardic, Irregular Rhythm; Negative: Rate Normal Abdomen Exam: Positive: Normal bowel sounds, Soft; Negative: Tenderness (diffusely tender, no rebound or guarding) Extremity Exam: Negative: Edema Neuro Exam: Negative: Normal Speech Psych Exam: Positive: Mental status NL, Anxiety, Oriented x 3 Assessment /Plan Problems (1) Sepsis Status: Acute Response to Treatment: Stable, Improving Discussed With: Nurse, Patient Problem Specific Plan: Monitor Clinically, Repeat Labs Problem Text: Pt admitted with RLL mass/effusion likely abscess vs aspiration given pts h/o emesis. D3 Zosyn. HR remains elevated, pressures soft. Bl cx negativei after 24 hrs. Sputum cx remains pending. Cont with IVF NS @ 100 cc/hr (2) GI bleed Status: Acute Discussed With: Patient Problem Specific Plan: Monitor Clinically, Repeat Labs Problem Text: Hgb continues to trend down to 8.0. Plan on transfusing today. GI consult today. (3) A-fib Status: Chronic Response to Treatment: Stable Problem Specific Plan: Monitor Clinically Problem Text: Rate elevated, likely assoc with hypovolemia, he is on his HD cardizem 240 mg po daily, Monitor rates. HOLD lovenox due to anemia and GIB. INR elevated on admission, he was given Vit K for reversal, INR remains subtherapeutic. (4) Lung mass Status: Chronic Response to Treatment: Worse Problem Text: Pt previously adamant that he have nothing done about the apical/mediastinal lung mass, on admission he has reversed this wish and would like at least additional testing and discussion about treatment options. At this point he is not medically stable enough to have this done, will work towards bx with IR when stable. Pt is aware of this plan. (5) Elevated INR Status: Resolved (6) Hyponatremia Status: Acute Response to Treatment: Improving Problem Specific Plan: Monitor Clinically, Repeat Labs Problem Text: Na 127 on admission, improved to 135. NS at 100 cc per hour. HOLD IVF while transfusing. (7) Hypokalemia Status: Acute Response to Treatment: Stable Problem Specific Plan: Monitor Clinically, Repeat Labs Problem Text: Will adjust IVF to attempt to correct this. (8) Pleural effusion Status: Acute Problem Text: Abscess vs aspiration on Zosyn IV, see above (9) Diarrhea Status: Acute Problem Specific Plan: Monitor Clinically Problem Text: Neg GI panel, neg C diff, will need endoscopy when stable. (10) DVT (deep venous thrombosis) Status: Chronic Response to Treatment: Stable Problem Specific Plan: Monitor Clinically Problem Text: h/o mtp DVT, will add Lovenox 80 mg BID until able to return to Warfarin, he has declined use of other anticoag d/t cost. (11) Alcohol abuse Status: Chronic Response to Treatment: Stable Problem Specific Plan: Monitor Clinically Problem Text: Pt with h/o alcohol abuse, reports last use 10-12 days ago. Plan/VTE VTE Prophylaxis Ordered?: Yes VS, I&O, 24H, Fishbone Vital Signs/I&O Vital Signs Date Time Temp Pulse Resp B/P (MAP) Pulse Ox O2 Delivery O2 Flow Rate FiO2 02/19/19 06:00 116 24 108/78 (88) 96 Nasal Cannula 4.0 02/19/19 04:00 98.9 I&O- Last 24 Hours up to 6 AM 02/19/19 06:00 Intake Total 4100 ml Output Total 910 ml Balance 3190 ml Laboratory Data 24H LABS Laboratory Tests 2 02/19/19 04:57: Immature Granulocyte % (Auto) 4.3H, Neutrophils (%) (Auto) 84.0H, Lymphocytes (%) (Auto) 7.4L, Monocytes (%) (Auto) 3.7, Eosinophils (%) (Auto) 0.3, Basophils (%) (Auto) 0.3, Neutrophils # (Auto) 8.4, Lymphocytes # (Auto) 0.7L, Monocytes # (Auto) 0.4, Eosinophils # (Auto) 0.0, Basophils # (Auto) 0.0, Nucleated Red Blood Cells % (auto) 0.0, Prothrombin Time 18.5H, Prothromb Time International Ratio 1.57, Anion Gap 7L, Glomerular Filtration Rate > 60.0, Calcium Level 7.8L, Total Bilirubin 0.4#, Aspartate Amino Transf (AST/SGOT) 23, Alanine Aminotransferase (ALT/SGPT) 14, Alkaline Phosphatase 78, Total Protein 6.0L, Albumin 1.4L, Albumin/Globulin Ratio 0.30L CBC/BMP Laboratory Tests 02/19/19 04:57 Microbiology Microbiology 02/18/19 Gastrointestinal Tract Panel (PCR) - Final, Complete 02/18/19 Stool Occult Blood (MARINA) - Final, Complete 02/17/19 Gram Stain - Final, Resulted 02/17/19 Sputum Culture, Resulted Pending 02/17/19 Blood Culture - Preliminary, Resulted No growth after 24 hours . All specim... Naima Villanueva Feb 19, 2019 08:21
[2019-02-19] MEDS: NS 1,000 ML IV SCH ×2 (13:17→19:00)
--- NOTE | 2019-02-19 19:55 | IPN ---
DATE: 02/19/2019 We were summoned urgently to Mr. Thompson's room. He was diaphoretic and having severe abdominal pain and feeling very weak. On examination, he has a distended bladder despite the presence of a Vásquez catheter. With manipulation of the Vásquez catheter, he started to produce urine into his Vásquez bag. His abdominal, diaphoresis and bladder distention improved. His vital signs returned to normal.
[2019-02-19] MEDS: LEVOTHYROXINE 88MCG TABLET (0.088 MG) PO SCH (20:16)
[2019-02-20] VITALS (20 sets, daily range): BP systolic 89–122; BP diastolic 50–89
--- NOTE | 2019-02-20 00:35 | CR.PDOC ---
General Date of Consultation: Feb 19, 2019 Referring Provider: Naima Villanueva Attending Physician: NORY HUMPHREY MD Consultation Primary physician/ hospitalist: Dr. Larson Reason for consult: Anemia HPI: 58-year-old male patient with HTN, DM type II, atrial fibrillation on Coumadin, lung mass came to ER for complaints of fatigue. Patient also noted with progressive anemia. Patient reports that he was told about his lung mass 2 months ago, he did not want any workup done at the time, today he wishes to have his lung mass diagnosed and treated. Patient also reports cough with phlegm, shortness of breath and diarrhea with dark stools daily for few months and also mild to moderare abdominal pain. Pertinent negative GI symptoms: Patient denies nausea, vomiting, loss of appetite, early satiety or unintentional weight loss. No history of hematemesis, Review of Systems: GI: as stated above CVS: No chest pain, No palpitations, No leg swelling. RS: No Shortness of breath, No Wheezing, no cough SURTASS ANALYST: No dizziness, No motor weakness, No sensory problems Hematology: No bruising, No gum bleeding, Musculoskeletal: No joint pain, ambulating well. Skin: No rash : No hematuria, No burning sensation of the urine ENT: No ear discharge/ pain, No dysphagia. Eyes: No photophobia. Home medications: reviewed. Antithrombotic agents yes. Stopped on day of admission. Medical h/o: As above. Surgical h/o: None on abdomen. Social h/o: Alcohol- denies , tobacco- former , IVDA/ drugs- denies . Family h/o of GI cancers non contributory but has multiple family members with different cancers. Prior Endoscopies: none in [facility]. Exam: Vitals: reviewed General: Alert and oriented x 3, not in distress HEENT: NO pallor, no icterus. Normal oropharynx, NO cervical lymph nodes. Chest: symmetric with bilateral clear air entry, CVS: S1, S2 heard, normal, no murmurs . Abdomen: non-distended, no surgical scars, soft, non-tender, no palpable masses, normal bowel sounds heard. Rectal exam: Patient refused / Deferred at this time in view of scheduled colonoscopy. Extremities: no pedal edema, pulses palpable. SURTASS ANALYST: no focal motor or sensory deficits. Moves all extremities Skin: no rash. Labs: reviewed. Impression: - Progressive anemia with dark stools, diarrhea for few months. which are occult postitive in a patient with know lung cancer. Needs further evaluation and work up. - Chronic diarrhea -- s/p Colonoscopy by Dr. Madrid yesterday. Recommend to follow up with results. Recommendations: - Patient educated about the test results, possible differential diagnoses and All questions answered. - Monitor Hemoglobin and transfuse if needed. - At this time patient is still having significant respiratory distress and using accessory muscles of respiration. - Please give bowel prep with golytely after patient is medically optimized for possible EGD and Colonoscopy. Patient will require clearance from primary team to proceed with EGD and Colonoscopy when medically stable. - The procedure, indications, risks (bleeding, perforation, infection, hypotension, respiratory depression, allergy, need for endotracheal intubation, surgery, colostomy, cardiac arrest, even ), benefits, limitations (e.g., missing a lesion), and all other alternatives (including no intervention) were explained to the patient who understood and agreed for the procedure. - Recall GI if any change in status. Plan of care discussed with patient and primary team. Patient verbalized understanding and agreed with the plan. Vital Signs/I&O Vital Signs Date Time Temp Pulse Resp B/P (MAP) Pulse Ox O2 Delivery O2 Flow Rate FiO2 02/19/19 23:00 118 95/64 (74) 90 Room Air 02/19/19 20:00 97.5 26 02/19/19 07:15 2.0 I&O- Last 24 Hours up to 6 AM 02/20/19 06:00 Intake Total 3330 ml Output Total 1215 ml Balance 2115 ml Laboratory Data Labs 24H Laboratory Tests 2 02/19/19 04:57: Immature Granulocyte % (Auto) 4.3H, Neutrophils (%) (Auto) 84.0H, Lymphocytes (%) (Auto) 7.4L, Monocytes (%) (Auto) 3.7, Eosinophils (%) (Auto) 0.3, Basophils (%) (Auto) 0.3, Neutrophils # (Auto) 8.4, Lymphocytes # (Auto) 0.7L, Monocytes # (Auto) 0.4, Eosinophils # (Auto) 0.0, Basophils # (Auto) 0.0, Nucleated Red Blood Cells % (auto) 0.0, Prothrombin Time 18.5H, Prothromb Time International Ratio 1.57, Anion Gap 7L, Glomerular Filtration Rate > 60.0, Calcium Level 7.8L, Total Bilirubin 0.4#, Aspartate Amino Transf (AST/SGOT) 23, Alanine Aminotransferase (ALT/SGPT) 14, Alkaline Phosphatase 78, Total Protein 6.0L, Albumin 1.4L, Albumin/Globulin Ratio 0.30L CBC/BMP Laboratory Tests 02/19/19 04:57 Microbiology Microbiology 02/18/19 Gastrointestinal Tract Panel (PCR) - Final, Complete 02/18/19 Stool Occult Blood (MARINA) - Final, Complete 02/17/19 Gram Stain - Final, Resulted 02/17/19 Sputum Culture, Resulted Pending 02/17/19 Blood Culture - Preliminary, Resulted No Growth after 48 hours. All Specime... Allergies Coded Allergies: No Known Allergies (Verified , 04/07/09) Home Medications Scheduled Cholecalciferol (Vitamin D3) (Vitamin D3) 1,000 Unit Tab, 1,000 UNIT PO DAILY, (Reported) Diltiazem HCl (Diltiazem 24Hr ER) 120 Mg Cap.er.24h, 240 MG PO QHS, (Reported) Levothyroxine Sodium (Levoxyl) 88 Mcg Tab, 88 MCG PO QHS, (Reported) Lisinopril/Hydrochlorothiazide (Lisinopril-Hctz 10-12.5 mg Tab) 1 Tab Tab, 1 TAB PO DAILY, (Reported) Omeprazole (Omeprazole) 20 Mg Cap, 20 MG PO DAILY, (Reported) Sertraline HCl (Sertraline HCl) 100 Mg Tab, 200 MG PO DAILY, (Reported) Warfarin Sodium (Warfarin Sodium) 5 Mg Tablet, 5 MG PO Q2D, (Reported) ALTERNATES WITH 7.5MG Warfarin Sodium (Warfarin Sodium) 7.5 Mg Tablet, 7.5 MG PO Q2D, (Reported) ALTERNATES WITH 5MG Scheduled PRN Acetaminophen with Codeine (Tylenol with Codeine #4 Tablet) 1 Tab Tab, 1 TAB PO QID PRN for PAIN, (Reported) NORY HUMPHREY MD Feb 20, 2019 00:35
[2019-02-20] MEDS: PIPERACILLIN/TAZOBACTAM SOD 3.375 GM in D5W MINI-BAG PLUS 50 ML IV SCH ×4 (03:28→20:04)
[2019-02-20] MEDS: NS 1,000 ML IV SCH ×3 (03:28→23:58)
[2019-02-20 05:24] LABS: HEMATOCRIT 25.9 % (42.0-52.0); HEMOGLOBIN 8.6 g/dl (13.5-17.5); MEAN CORPUSCULAR HEMOGLOBIN 29.2 pg (27.0-33.0); MEAN CORPUSCULAR HGB CONC 33.2 g/dl (32.0-36.5); MEAN CORPUSCULAR VOLUME 87.8 fl (80.0-96.0); PLATELET COUNT, AUTOMATED 265 10^3/uL (150-450); RED BLOOD COUNT 2.95 10^6/uL (4.30-6.10); WHITE BLOOD COUNT 10.3 10^3/uL (4.0-10.0)
[2019-02-20 05:48] LABS: ALBUMIN 1.4 GM/DL (3.2-5.2); ALT/SGPT 14 U/L (12-78); BILIRUBIN,TOTAL 0.7 MG/DL (0.2-1.0); BLOOD UREA NITROGEN 10 MG/DL (7-18); CALCIUM LEVEL 7.4 MG/DL (8.5-10.1); CARBON DIOXIDE LEVEL 24 MEQ/L (21-32); CHLORIDE LEVEL 104 MEQ/L (98-107); CREATININE FOR GFR 0.66 MG/DL (0.70-1.30); GLOMERULAR FILTRATION RATE > 60.0 (>56); GLUCOSE, FASTING 84 MG/DL (70-100); POTASSIUM SERUM 3.2 MEQ/L (3.5-5.1); SODIUM LEVEL 138 MEQ/L (136-145)
[2019-02-20] MEDS: SERTRALINE 100 MG TAB PO SCH (09:48)
[2019-02-20] MEDS: VITAMIN D 1,000 INTERNATIONAL UNITS TABLET PO SCH (09:48)
[2019-02-20] MEDS: PANTOPRAZOLE 40MG INJ (PROTONIX) (C9113) IV SCH ×2 (09:48→20:04)
--- NOTE | 2019-02-20 10:44 | IPNPDOC ---
Subjective Date Seen The patient was seen on 02/20/19. Subjective Chief Complaint/HPI Pt this morning without new concerns. He states that he wants to be able to get out of bed. General: Reports: Fatigue Constitutional: Denies: Chills, Fever ENT: Denies: Head Aches Pulmonary: Reports: Dyspnea, Cough Cardiovascular: Denies: Chest Pain, Palpitations Gastrointestinal: Denies: Nausea, Vomiting, Diarrhea Neurological: Denies: Weakness Psych: Reports: Mood Normal Objective Physical Examination General Exam: Positive: Alert, No Acute Distress; Negative: Mild Distress ENT Exam: Positive: Mucous membr. moist/pink Chest Exam: Positive: Wheezing, Diminished (RLL); Negative: Clear to auscultation, Normal air movement Heart Exam: Positive: Tachycardic, Irregular Rhythm; Negative: Rate Normal Abdomen Exam: Positive: Normal bowel sounds, Soft; Negative: Tenderness (diffusely tender, no rebound or guarding) Extremity Exam: Negative: Edema Neuro Exam: Negative: Normal Speech Psych Exam: Positive: Mental status NL, Anxiety, Oriented x 3 Assessment /Plan Problems (1) Sepsis Status: Acute Response to Treatment: Stable, Improving Discussed With: Nurse, Patient Problem Specific Plan: Monitor Clinically, Repeat Labs Problem Text: 02/20 Zosyn D4. 02/19 Pt admitted with RLL mass/effusion likely abscess vs aspiration given pts h/o emesis. D3 Zosyn. HR remains elevated, pressures soft. Bl cx negativei after 24 hrs. Sputum cx remains pending. Cont with IVF NS @ 100 cc/hr (2) GI bleed Status: Acute Discussed With: Patient Problem Specific Plan: Monitor Clinically, Repeat Labs Problem Text: 02/20 Hgb 8.6 today increased from 8.0 this morning, received 1 unit pRBCs. Chandrala to take for EGD colonoscopy when medically stable. 02/19 Hgb continues to trend down to 8.0. Plan on transfusing today. GI consult today. (3) A-fib Status: Chronic Response to Treatment: Stable Problem Specific Plan: Monitor Clinically Problem Text: Rate elevated, likely assoc with hypovolemia, he is on his HD cardizem 240 mg po daily, Monitor rates. HOLD lovenox due to anemia and GIB. INR elevated on admission, he was given Vit K for reversal, INR remains subtherapeutic. (4) Lung mass Status: Chronic Response to Treatment: Worse Problem Text: Pt previously adamant that he have nothing done about the apical/mediastinal lung mass, on admission he has reversed this wish and would like at least additional testing and discussion about treatment options. At this point he is not medically stable enough to have this done, will work towards bx with IR when stable. Pt is aware of this plan. (5) Elevated INR Status: Resolved (6) Hyponatremia Status: Resolved Response to Treatment: Improving Problem Specific Plan: Monitor Clinically, Repeat Labs Problem Text: Na 127 on admission, improved to 135. NS at 100 cc per hour. HOLD IVF while transfusing. (7) Hypokalemia Status: Acute Response to Treatment: Stable Problem Specific Plan: Monitor Clinically, Repeat Labs Problem Text: Will adjust IVF to attempt to correct this. (8) Pleural effusion Status: Acute Problem Text: Abscess vs aspiration on Zosyn IV, see above (9) Diarrhea Status: Acute Problem Specific Plan: Monitor Clinically Problem Text: Neg GI panel, neg C diff, will need endoscopy when stable. (10) DVT (deep venous thrombosis) Status: Chronic Response to Treatment: Stable Problem Specific Plan: Monitor Clinically Problem Text: h/o mtp DVT, will add Lovenox 80 mg BID until able to return to Warfarin, he has declined use of other anticoag d/t cost. (11) Alcohol abuse Status: Chronic Response to Treatment: Stable Problem Specific Plan: Monitor Clinically Problem Text: Pt with h/o alcohol abuse, reports last use 10-12 days ago. Plan/VTE VTE Prophylaxis Ordered?: Yes VS, I&O, 24H, Fishbone Vital Signs/I&O Vital Signs Date Time Temp Pulse Resp B/P (MAP) Pulse Ox O2 Delivery O2 Flow Rate FiO2 02/20/19 08:57 97 02/20/19 08:00 24 102/65 (77) 91 Room Air 02/20/19 04:00 98.9 02/19/19 07:15 2.0 I&O- Last 24 Hours up to 6 AM 02/20/19 06:00 Intake Total 4100 ml Output Total 1665 ml Balance 2435 ml Laboratory Data 24H LABS Laboratory Tests 2 02/20/19 04:36: Nucleated Red Blood Cells % (auto) 0.0, Anion Gap 10, Glomerular Filtration Rate > 60.0, Calcium Level 7.4L, Total Bilirubin 0.7#, Aspartate Amino Transf (AST/SGOT) 19, Alanine Aminotransferase (ALT/SGPT) 14, Alkaline Phosphatase 79, Total Protein 5.0L, Albumin 1.4L, Albumin/Globulin Ratio 0.39L 02/20/19 09:18: CBC/BMP Laboratory Tests 02/20/19 04:36 Microbiology Microbiology 02/18/19 Gastrointestinal Tract Panel (PCR) - Final, Complete 02/18/19 Stool Occult Blood (MARINA) - Final, Complete 02/17/19 Gram Stain - Final, Resulted 02/17/19 Sputum Culture, Resulted Pending 02/17/19 Blood Culture - Preliminary, Resulted No Growth after 48 hours. All Specime... RAN PARRA PA-C Feb 20, 2019 10:44
[2019-02-20] MEDS: ACETAMINOPH W/CODEINE #3 TAB UD PO PRN (19:48)
[2019-02-20] MEDS ORDERED: POTASSIUM CHLORIDE 10 MEQ SR TABLET PO ONE (20:00)
[2019-02-20] MEDS: LEVOTHYROXINE 88MCG TABLET (0.088 MG) PO SCH (20:05)
[2019-02-20] MEDS: ACETAMINOPHEN 500 MG TAB PO PRN (23:58)
[2019-02-21] VITALS (24 sets, daily range): BP systolic 91–133; BP diastolic 57–90
[2019-02-21] MEDS: PIPERACILLIN/TAZOBACTAM SOD 3.375 GM in D5W MINI-BAG PLUS 50 ML IV SCH ×4 (03:08→20:24)
[2019-02-21 05:18] LABS: HEMATOCRIT 25.7 % (42.0-52.0); HEMOGLOBIN 8.4 g/dl (13.5-17.5); MEAN CORPUSCULAR HEMOGLOBIN 29.2 pg (27.0-33.0); MEAN CORPUSCULAR HGB CONC 32.7 g/dl (32.0-36.5); MEAN CORPUSCULAR VOLUME 89.2 fl (80.0-96.0); PLATELET COUNT, AUTOMATED 241 10^3/uL (150-450); RED BLOOD COUNT 2.88 10^6/uL (4.30-6.10); WHITE BLOOD COUNT 8.1 10^3/uL (4.0-10.0)
[2019-02-21 05:39] LABS: ATYPICAL LYMPH 1 % (0-5); BASOPHILS 2 % (0-1); EOSINOPHILS 1 % (0-3); LYMPHOCYTES 9 % (16-44); METAMYELOCYTES 3 % (0-0); MONOCYTES 3 % (0-5); NEUTROPHILS 81 % (28-66); PLATELET ESTIMATE NORMAL (NORMAL)
[2019-02-21 05:41] LABS: PLATELET CLUMPS SMALL AMT
[2019-02-21 05:42] LABS: ROULEAUX 1+
[2019-02-21 05:44] LABS: ALBUMIN 1.3 GM/DL (3.2-5.2); ALT/SGPT 12 U/L (12-78); BILIRUBIN,TOTAL 0.6 MG/DL (0.2-1.0); BLOOD UREA NITROGEN 8 MG/DL (7-18); CALCIUM LEVEL 7.5 MG/DL (8.5-10.1); CARBON DIOXIDE LEVEL 24 MEQ/L (21-32); CHLORIDE LEVEL 106 MEQ/L (98-107); CREATININE FOR GFR 0.65 MG/DL (0.70-1.30); GLOMERULAR FILTRATION RATE > 60.0 (>56); GLUCOSE, FASTING 83 MG/DL (70-100); POTASSIUM SERUM 3.2 MEQ/L (3.5-5.1); SODIUM LEVEL 138 MEQ/L (136-145); TOTAL PROTEIN 5.4 GM/DL (6.4-8.2)
[2019-02-21 05:45] LABS: POLYCHROMASIA 1+
[2019-02-21] MEDS: POTASSIUM CHLORIDE 10 MEQ SR TABLET PO SCH ×2 (06:47→10:25)
--- NOTE | 2019-02-21 08:23 | IPNPDOC ---
Subjective Date Seen The patient was seen on 02/21/19. Subjective Chief Complaint/HPI Continues to c/o copious sputum production. Pain in left upper chest that radiates into upper left thorax. No f/c Diarrhea slightly less copious per nursing No n/v - He is hungry and want sto eat solid food - currently on clear liquids He also wants to get up out of bed to chair if possible - currently on bedrest Constitutional: Denies: Chills, Fever Pulmonary: Reports: Dyspnea, Cough, Pleuritic Chest Pain Cardiovascular: Denies: Chest Pain, Palpitations, Orthopnea, Edema Gastrointestinal: Reports: Diarrhea; Denies: Nausea, Vomiting, Abdominal Pain Objective Physical Examination General Exam: Positive: Alert, No Acute Distress; Negative: Mild Distress ENT Exam: Positive: Mucous membr. moist/pink Chest Exam: Positive: Diminished (RLL); Negative: Clear to auscultation, Normal air movement Heart Exam: Positive: Tachycardic, Irregular Rhythm; Negative: Rate Normal Abdomen Exam: Positive: Normal bowel sounds, Soft, Other (Rectal tube in place draining loose brown stool ); Negative: Tenderness Male Exam: Negative: Edema Extremity Exam: Negative: Edema Neuro Exam: Negative: Normal Speech Psych Exam: Positive: Mental status NL, Anxiety, Oriented x 3 Assessment /Plan Problems (1) Pneumonia Status: Acute Problem Text: Probable post-obstructive pneumonia with malignant pleural effusion continues to cough up copious sputum Sputum C & s pending cont Zosyn WBC normalized, Afebrile now CT chest: 1. Left apical mass has increased in size and now invades the left first rib causing pathologic nondisplaced fracture. 2. Large complex right lower lobe mass / malignant effusion / consolidation. 3. Mediastinal and hilar adenopathy. (2) Sepsis Status: Acute Response to Treatment: Stable, Improving Discussed With: Nurse, Patient Problem Specific Plan: Monitor Clinically, Repeat Labs Problem Text: 02/21 - sepsis secondary to pneumonia - see above BP remains soft, but this is likely related to volume loss from diarrhea - Cont IVF 02/20 Zosyn D4. 02/19 Pt admitted with RLL mass/effusion likely abscess vs aspiration given pts h/o emesis. D3 Zosyn. HR remains elevated, pressures soft. Bl cx negativei after 24 hrs. Sputum cx remains pending. Cont with IVF NS @ 100 cc/hr (3) GI bleed Status: Acute Discussed With: Patient Problem Specific Plan: Monitor Clinically, Repeat Labs Problem Text: 02/21 - Hgb Remains stable = 8.4 Dr. Duarte planning EGD/Colonoscopy when medically stable INR normalized 02/20 Hgb 8.6 today increased from 8.0 this morning, received 1 unit pRBCs. Gerald to take for EGD colonoscopy when medically stable. 02/19 Hgb continues to trend down to 8.0. Plan on transfusing today. GI consult today. (4) Diarrhea Status: Acute Problem Specific Plan: Monitor Clinically Problem Text: 02/21 Neg GI panel, neg C diff, will need endoscopy when stable. Cont Rectal tube Cont Imodium Less copious diarrhea overnight - Start Questran today and monitor trend He reains on clear liquids in anticipation for scope - hopefully today (5) Hypokalemia Status: Acute Response to Treatment: Stable Problem Specific Plan: Monitor Clinically, Repeat Labs Problem Text: 02/21 - Give further potassium po today and recheck level again later today Mag normal (6) A-fib Status: Chronic Response to Treatment: Stable Problem Specific Plan: Monitor Clinically Problem Text: 02/21 - Rate 100-120 on Cardizem 240 QD Coumadin held and Vit K given INR 1.57 02/19 - repeat today JFW: rate 90-130; will add digoxin INR back up to 2.x; not actively bleeding, so have not given more Vit K for this (7) Lung mass Status: Chronic Response to Treatment: Worse Problem Text: Pt previously adamant that he have nothing done about the apical/ mediastinal lung mass, on admission he has reversed this wish and would like at least additional testing and discussion about treatment options. At this point he is not medically stable enough to have this done, will work towards bx with IR when stable. Pt is aware of this plan. (8) Elevated INR Status: Resolved (9) Hyponatremia Status: Resolved Response to Treatment: Improving Problem Specific Plan: Monitor Clinically, Repeat Labs Problem Text: Na 127 on admission, improved to 135. NS at 100 cc per hour. HOLD IVF while transfusing. (10) Pleural effusion Status: Acute Problem Text: Abscess vs aspiration on Zosyn IV, see above (11) DVT (deep venous thrombosis) Status: Chronic Response to Treatment: Stable Problem Specific Plan: Monitor Clinically Problem Text: h/o mtp DVT, Anticoag on hold due to GI bleed (12) Alcohol abuse Status: Chronic Response to Treatment: Stable Problem Specific Plan: Monitor Clinically Problem Text: Pt with h/o alcohol abuse, reports last use 10-12 days ago. Plan/VTE VTE Prophylaxis Ordered?: Yes VTE Exclusion Pharmacological: Bleeding Risk Plan Therapy: PT, OT Disposition Get OOB and get PT/OT VS, I&O, 24H, Fishbone Vital Signs/I&O Vital Signs Date Time Temp Pulse Resp B/P (MAP) Pulse Ox O2 Delivery O2 Flow Rate FiO2 02/21/19 06:46 122 112/72 (85) 88 Room Air 02/21/19 04:01 98.0 16 02/19/19 07:15 2.0 I&O- Last 24 Hours up to 6 AM 02/21/19 06:00 Intake Total 3340 ml Output Total 1755 ml Balance 1585 ml Laboratory Data 24H LABS Laboratory Tests 2 02/20/19 09:18: Methicillin-Resist S.aureus DNA PCR NOT DETECTED 02/21/19 04:51: Immature Granulocyte % (Auto) , Nucleated Red Blood Cells % (auto) 0.0, Neutrophils 81H, Lymphocytes (Manual) 9L, Monocytes (Manual) 3, Eosinophils (Manual) 1, Basophils (Manual) 2H, Metamyelocytes 3H, Atypical Lymphocytes 1, Polychromasia 1+, Rouleau 1+, Platelet Estimate NORMAL, Clumped Platelets SMALL AMT, Anion Gap 8, Glomerular Filtration Rate > 60.0, Calcium Level 7.5L, Total Bilirubin 0.6, Aspartate Amino Transf (AST/SGOT) 16, Alanine Aminotransferase (ALT/SGPT) 12, Alkaline Phosphatase 71, Total Protein 5.4L, Albumin 1.3L, Albumin/Globulin Ratio 0.32L CBC/BMP Laboratory Tests 02/21/19 04:51 Microbiology Microbiology 02/18/19 Gastrointestinal Tract Panel (PCR) - Final, Complete 02/18/19 Stool Occult Blood (MARINA) - Final, Complete 02/17/19 Gram Stain - Final, Resulted 02/17/19 Sputum Culture, Resulted Pending 02/17/19 Blood Culture - Preliminary, Resulted No Growth after 72 hours. All specime... DORCAS KING PA-C Feb 21, 2019 08:23 James King MD Feb 21, 2019 16:28
[2019-02-21] MEDS: VITAMIN D 1,000 INTERNATIONAL UNITS TABLET PO SCH (09:28)
[2019-02-21] MEDS: SERTRALINE 100 MG TAB PO SCH (09:28)
[2019-02-21] MEDS: PANTOPRAZOLE 40MG INJ (PROTONIX) (C9113) IV SCH ×2 (09:28→20:24)
[2019-02-21] MEDS: ACETAMINOPH W/CODEINE #3 TAB UD PO PRN ×2 (09:34→20:24)
[2019-02-21 09:42] LABS: INR 2.49; PROTHROMBIN TIME 26.8 SECONDS (11.8-14.0)
[2019-02-21] MEDS: CHOLESTYRAMINE 4 GM PWD PKT PO SCH ×2 (11:44→22:16)
[2019-02-21] MEDS: NS 1,000 ML IV SCH ×2 (11:44→23:02)
[2019-02-21] MEDS: ACETAMINOPHEN 500 MG TAB PO PRN (15:15)
[2019-02-21] MEDS: DIGOXIN 0.25 MG TAB PO SCH (17:20)
[2019-02-21 18:30] LABS: BLOOD UREA NITROGEN 7 MG/DL (7-18); CALCIUM LEVEL 8.1 MG/DL (8.5-10.1); CARBON DIOXIDE LEVEL 22 MEQ/L (21-32); CHLORIDE LEVEL 106 MEQ/L (98-107); CREATININE FOR GFR 0.71 MG/DL (0.70-1.30); GLOMERULAR FILTRATION RATE > 60.0 (>56); GLUCOSE, FASTING 88 MG/DL (70-100); POTASSIUM SERUM 3.6 MEQ/L (3.5-5.1); SODIUM LEVEL 137 MEQ/L (136-145)
[2019-02-21] MEDS: LEVOTHYROXINE 88MCG TABLET (0.088 MG) PO SCH (20:23)
[2019-02-21] MEDS ORDERED: RAMELTEON 8 MG TAB (ROZEREM) PO SCH (21:00)
[2019-02-22] MEDS: PIPERACILLIN/TAZOBACTAM SOD 3.375 GM in D5W MINI-BAG PLUS 50 ML IV SCH ×3 (02:43→15:11)
[2019-02-22] MEDS: ACETAMINOPH W/CODEINE #3 TAB UD PO PRN ×3 (02:45→15:17)
[2019-02-22 06:00] VITALS: BP 101/63
[2019-02-22 06:57] LABS: HEMATOCRIT 25.7 % (42.0-52.0); HEMOGLOBIN 8.2 g/dl (13.5-17.5); MEAN CORPUSCULAR HGB CONC 31.9 g/dl (32.0-36.5); MEAN CORPUSCULAR VOLUME 90.8 fl (80.0-96.0); PLATELET COUNT, AUTOMATED 231 10^3/uL (150-450); RED BLOOD COUNT 2.83 10^6/uL (4.30-6.10); WHITE BLOOD COUNT 8.6 10^3/uL (4.0-10.0)
[2019-02-22] MEDS: PANTOPRAZOLE 40MG INJ (PROTONIX) (C9113) IV SCH (09:13)
[2019-02-22] MEDS: CHOLESTYRAMINE 4 GM PWD PKT PO SCH (09:13)
[2019-02-22] MEDS: DIGOXIN 0.25 MG TAB PO SCH (09:14)
[2019-02-22] MEDS: SERTRALINE 100 MG TAB PO SCH (09:14)
[2019-02-22] MEDS: NS 1,000 ML IV SCH ×2 (09:14→15:11)
[2019-02-22] MEDS: VITAMIN D 1,000 INTERNATIONAL UNITS TABLET PO SCH (09:14)
[2019-02-22 14:00] VITALS: BP 124/86
[2019-02-23] MEDS ORDERED: WARF-23 PO (09:06)
[2019-02-23] MEDS ORDERED: D3 H10002 PO (09:06)
[2019-03-08] MEDS ORDERED: PANT40TA3 PO (12:30)
[2019-03-08] MEDS ORDERED: AMOX875T2 PO (12:30)
[2019-03-08] MEDS ORDERED: PERCOCET PO (12:30)
--- NOTE | 2019-03-20 17:48 | DSES ---
DATE OF ADMISSION: 02/17/2019 DATE OF DISCHARGE: 02/22/2019 BRIEF HISTORY AND PHYSICAL: The patient is a 58-year-old with a past medical history of atrial fibrillation on Coumadin, hypertension, diabetes, un-diagnosed lung mass who presents from primary care provider's office for fatigue. He went to his primary care provider 's office to get his international normalized ratio (INR) and he felt significantly fatigued with intermittent fevers, chills, night sweats, minimal oral intake, nausea, vomiting, blood-tinged sputum with dark stool, and he was found have significantly elevated INR, for which he was given fresh frozen plasma (FFP) in the emergency room. PAST MEDICAL HISTORY: Significant for a lung mass which was found on imaging a couple of months earlier and he had told his primary care provider (PCP) he did not want anything done, atrial fibrillation on Coumadin, hypertension, diabetes, former smoker. PERTINENT LABORATORY DATA ON ADMISSION: INR was too high to read. White count 16.7, hemoglobin 10, platelets 306,000. Sodium 127, potassium 2.6, BUN 29, creatinine 0.9, glucose 125, albumin 1.5. Chest x-ray showed a large right lower lobe infiltrate and presumed pleural effusion. CT of the chest showed left apical mass increased in size, now invasive at first rib causing pathologic nondisplaced fracture, large complex right lower lobe mass, malignant effusion and consolidation, mediastinal and hilar adenopathy. CT of the abdomen and pelvis showed consolidation seen in the right middle and lower lobes with associated pleural effusion most likely due to pneumonia and/or atelectasis, gallbladder wall was thickened and contracted, splenomegaly increased compared to November 2018. HOSPITAL COURSE: 1. The patient was admitted for pneumonia with large pleural effusion and placed on Zosyn. His sputum culture grew Haemophilus parainfluenza. White count normalized. Saturations were about 90% on room air. 2. Gastrointestinal (GI) bleed. Hemoglobin drifted down to 8. He was transfused two units of packed red blood cells. Hemoglobin was 8.2 at the time of discharge. 3. Hyponatremia and hypokalemia. Potassium supplement was given and his potassium normalized. 4. Hyponatremia. Sodium improved with IV fluid hydration. 5. Elevated international normalized ratio (INR), resolved with fresh frozen plasma (FFP). 6. History of deep vein thrombosis (DVT). Anticoagulation was held due to GI bleed. 7. Alcohol abuse. He reported his last alcohol use was 10-12 days ago. No signs of withdrawal. DISPOSITION: The patient left against medical advice (AMA) without having medications prescribed or continued at discharge.
== END 2019-02-22 16:58 | disposition left against medical advice (07) | DRG 871 ==
LOC: M ED 13:21 → M ED INP 17:11 → M ICU 19:29 → M MSPAV 02-21 22:55
PROVIDERS: ADMIT Internal Medicine; ATTEND Family Medicine
PROC: 30233K1 Transfusion of Nonautologous Frozen Plasma into Peripheral Vein, Percutaneous Approach (ICD-10-PCS; 2019-02-17)
PROC: 30233N1 Transfusion of Nonautologous Red Blood Cells into Peripheral Vein, Percutaneous Approach (ICD-10-PCS; principal; 2019-02-19)
DX: A41.9 Sepsis, unspecified organism (principal); J18.9 Pneumonia, unspecified organism; E87.1 Hypo-osmolality and hyponatremia; J90 Pleural effusion, not elsewhere classified; R79.1 Abnormal coagulation profile; E87.6 Hypokalemia; I48.91 Unspecified atrial fibrillation; E11.9 Type 2 diabetes mellitus without complications; I10 Essential (primary) hypertension; Z79.01 Long term (current) use of anticoagulants; R91.8 Other nonspecific abnormal finding of lung field; Z87.891 Personal history of nicotine dependence; Z79.899 Other long term (current) drug therapy; F10.10 Alcohol abuse, uncomplicated; R19.7 Diarrhea, unspecified; D64.9 Anemia, unspecified

== ENCOUNTER → 2019-03-21 | Outpatient (CLI) | payer MEDICARE ==
[~2019-03-21] MED LIST changes: +AMOX875T2 PO; +D3 H10002 PO; +DILT120C77 PO; +GABA-1171 PO; +PANT40TA3 PO; +PERCOCET PO; +VITA1CHW7 PO; +WARF-21 PO
--- NOTE | 2019-03-24 10:05 | RADONC ---
RADIATION ONCOLOGY CONSULTATION NOTE DATE: 03/21/2019 CHART NUMBER: [id number] DIAGNOSIS: Left upper lobe lung cancer. STAGE: In progress. ECOG PERFORMANCE STATUS: 2. CONSULTATION NOTE: Mr. 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 HISTORY OF PRESENT ILLNESS: The patient has a lengthy history of multiple medical issues all of which are significant. His present history dates back to the illness of his who in December 2018 of pancreatic cancer. Apparently during her illness he had progressive left upper chest and shoulder pain. On 11/20/[address] scan of the chest was undertaken and revealed an irregular lobular density in the left apex with surrounding stranding and spiculation measuring 4.5 x 3.0 x 4.0 cm which was suspicious for a malignancy. It was recommended that a PET/CT be undertaken. The patient's in December delaying initiation of intervention. And on 02/17/[address] scan was undertaken once again and the left apical mass had increased in size now measuring approximately 5.3 cm x 6.0 cm. There was also noted to be complex multiloculated right lower lobe mass consolidation of malignant pleural effusions were possible. The size of this was 16.0 cm x 8.6 cm and 13 cm in craniocaudal length. There was mediastinal and hilar adenopathy present. Subsequent CT done on 02/27/2019 again showed moderate to large loculated right pleural effusion. There was question of a new left pleural effusion. On 02/27/2019 a cell block of the pleural effusion was undertaken which showed inflammatory cells and scattered mesothelial cells. It was negative for malignancy. On 03/06/2019 a biopsy of the left upper lobe was undertaken and revealed a poorly differentiated non-small cell lung carcinoma with necrosis. The tumor was strongly positive for TTF1 while P63 stain was negative. The results were therefore consistent with an adenocarcinoma of lung primary. The patient has had increasing pain and reports that it is not controlled well with oxycodone. He is now taking Tylenol which he says helps somewhat. He is presenting to me for consideration of palliative radiation therapy. As per Dr. Clifton he is not a candidate for surgery and therefore radiation would be palliative in nature. We are limited in dose to the brachial plexus involvement. PAST MEDICAL HISTORY: The patient's past medical history is positive for pneumonia with lung abscesses, anemia requiring transfusions, atrial fibrillation with rapid ventricular response, right pleural effusions requiring chest tube drainage, left brachial plexus pain secondary to his lung cancer, hypertensive heart disease, gastrointestinal bleeding with blood loss and anemia, hypomagnesemia, major depressive disorder and anticoagulation therapy. He has GERD and hypothyroidism. He has hypercholesterolemia. He has a history of alcohol abuse. ALLERGIES: The patient has no known drug allergies. SOCIAL HISTORY: The patient reports that he quit 10 years ago. He had smoked two packs of cigarettes per day since the age of 18. He does not abuse alcohol. FAMILY HISTORY: The patient's family history is positive for a mother with lung cancer. REVIEW OF SYSTEMS: The patient's review of systems is positive for physical limitations secondary to his pain as well as shortness of breath. He has anxiety and depression. He has been losing weight. He complains of headaches. He also has his chest and arm pain. He has weakness especially in his left arm. With decreased range of motion. He has decreased energy. He denies nausea, vomiting, fevers, chills, night sweats, diplopia, urinary or bowel difficulties. PHYSICAL EXAMINATION: The patient is a chronically ill-appearing white male who appears to be in acute discomfort. He is holding his left arm. HEENT exam is normocephalic, atraumatic. Extraocular movements are intact. There is no palpable cervical, supraclavicular, infraclavicular or axillary lymphadenopathy present. His lungs have decreased breath sounds and sounds actually quite junky throughout. There are rhonchi bilaterally. His heart has an irregularly irregular rhythm. Abdomen is benign with no hepatosplenomegaly, masses or tenderness. Extremities reveal decreased range of motion secondary to pain in his left upper extremity. The lower extremities and right upper extremity have normal ranges of motion and are sensory intact. ASSESSMENT: Clearly this patient is not curable at this point. He has disease affecting his brachial plexus which limits the amount of radiation and we can deliver. We are unable to deliver a tumoricidal level for curative intent. He is not a surgical candidate considering his multiple other issues as per my discussion with Dr. Bobby Clifton MD. At this time he is presenting purely for consideration of palliation of pain. I do believe he is a candidate for external beam radiation and I have so informed him. I have discussed with the patient in detail the potential benefits as well as possible acute and chronic sequelae of external beam radiation therapy. The patient at this time has poor pain control but does have narcotics at home which he is not using. I am scheduling the patient for initiation of treatment planning as soon as possible. We will then initiate a palliative dose of radiation. In light of his acute difficulty and the need for some type of rapid control I am planning delivering a dose of 3000 cGy in 10 fractions of 300 cGy each to his upper lung and shoulder and axillary region. I have asked him to discuss his pain control with his prescribing physician as well. Further recommendations will be made in the meantime. The patient is scheduled to be seen by medical oncology for discussion of any benefits they can give him the meantime as well. cc: MD Bobby Hanson MD Rory Sears, DO [facility] James Larson MD
== END ==
LOC: M ONCR 09:03
PROVIDERS: ATTEND Radiology Radiation Oncology
DX: C34.90 Malignant neoplasm of unspecified part of unspecified bronchus or lung (principal)

== ENCOUNTER 2019-04-16 11:14 | Outpatient (RCR) | payer MEDICARE ==
--- NOTE | 2019-04-02 12:08 | RADONC ---
RADIATION ONCOLOGY SIMULATION NOTE DATE: 04/01/2019 CHART NUMBER: [id number] Mr. Thompson has been taken to the CT scan for CT simulation of his left lung and shoulder field. CT was accomplished without difficulty or discomfort. Radiation treatment planning is underway and radiation treatments will begin subsequently. An immobilization device was created and will be used throughout the course of treatment. It was created without difficulty or discomfort. I was physically present throughout the course of CT simulation.
--- NOTE | 2019-04-07 12:00 | RADONC ---
RADIATION ONCOLOGY PROGRESS NOTE: DATE: 04/07/2019 CHART NUMBER: [id number] Mr. Thompson is presently at a dose of 900 cGy to his left shoulder and lung and is tolerating treatments quite well at this point with no complaints related to his radiation therapy. He continues to have pain and numbness although he reports that the pain is actually feeling better already. The patient's review of systems is positive for numbness on his left arm and pain in his left axilla and shoulder area but is otherwise noncontributory. He denies nausea, vomiting, fevers, chills, night sweats, diplopia, headaches, anxiety or depression, anorexia, weight loss, visual disturbances, chest pain, urinary or bowel difficulties, bone pain, or neurological problems. PHYSICAL EXAMINATION: The patient's skin is in excellent condition with no evidence of radiation change present. There is no moist or dry desquamation. The remainder of his physical exam remains unchanged. Mr. Thompson is tolerating treatments quite well and radiation will continue as scheduled.
--- NOTE | 2019-04-15 16:14 | RADONC ---
RADIATION ONCOLOGY PROGRESS NOTE DATE: 04/14/2019 CHART NUMBER: [id number] PROGRESS NOTE: Mr. Thompson is thus far at a dose of 2400 cGy to his left lung and arm region and is tolerating his treatments quite well at this point with no complaints related to his radiation therapy. He reports a significant improvement to almost complete resolution of his arm and shoulder pain. REVIEW OF SYSTEMS: The patient's review of systems is negative for arm pain at this point, which is quite remarkable. He is complaining however of bilateral lower extremity edema. He says this has been worsening over the last several days. He has no other complaints at this time related to his radiation therapy or disease. Denies nausea, vomiting, fevers, chills, night sweats, diplopia, headaches, anxiety or depression, anorexia, weight loss, visual disturbances, chest pain, urinary or bowel difficulties, bone pain, or neurological problems. PHYSICAL EXAMINATION: The patient's skin is in excellent condition with no evidence of moist or dry desquamation. The remainder of his physical exam is remarkable for significant edema in the lower extremities 2-3+ pitting. ASSESSMENT: The patient is clinically doing well with regards to his palliative radiation. He reports however that he is on steroids and is taking Decadron as per his pain physicians. He is scheduled to see his prescribing physicians tomorrow. We will continue to follow him for this. There can be multiple reasons for this edema and I will defer to his medical oncologist and other physicians at this time.
[~2019-04-16 11:14] MED LIST changes: +DEXA4TA PO; -OMEP-172 PO; +OMEP1CAP73 PO
[2019-04-16] MEDS ORDERED: TORS10TA3 PO (13:43)
[2019-04-16] MEDS ORDERED: METH5TA PO (13:43)
--- NOTE | 2019-04-17 11:42 | RADONC ---
RADIATION ONCOLOGY TREATMENT SUMMARY DATE: 04/16/2019 CHART NUMBER: [id number] DIAGNOSIS: Left upper lobe lung cancer. ECOG PERFORMANCE STATUS: 2. TREATMENT SUMMARY: Mr. 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 We treated the patient to his left lung mass and shoulder for a dose of 3000 cGy delivered in 10 fractions of 300 cGy each over 13 elapsed days from 04/03/2019 through 04/16/2019. The patient's shoulder was treated on the linear accelerator utilizing a 15 MV photon beam via 3-D conformal technique with anterior and posterior parallel opposed arellano. Mr. Thompson tolerated his treatments quite well and was able to complete therapy as prescribed without interruption. By the time he completed therapy he had complete resolution of his shoulder pain and was doing quite well. The patient was complaining of bilateral lower extremity edema but reports he has been on Decadron treatments with his pain physician and will be addressing that with him. I have scheduled the patient see me again in 1 month for further followup. He will also continue to be followed by his other physicians as well. He is under the close management of his medical oncologist, Dr. Cade Hendrix. I have ordered a MRI to be undertaken of the brain to rule out any brain metastasis. cc: MD Cristobal Styles DO [facility] MD James Chand MD
== END 2019-04-18 ==
LOC: M ONCR 11:14
PROVIDERS: ATTEND Radiology Radiation Oncology
DX: C34.12 Malignant neoplasm of upper lobe, left bronchus or lung (principal)

== ENCOUNTER → 2019-05-21 | Outpatient (CLI) | payer MEDICARE ==
[~2019-05-21] MED LIST changes: +METH5TA PO; +TORS10TA3 PO
--- NOTE | 2019-05-23 11:33 | RADONC ---
RADIATION ONCOLOGY FOLLOWUP NOTE DATE: 05/21/2019 CHART NUMBER: [id number] DIAGNOSIS: Left upper lobe lung cancer. ECOG PERFORMANCE STATUS: 2 FOLLOWUP NOTE: Mr. Thompson is a very pleasant 59-year-old white male with the diagnosis of a poorly differentiated [id number] Pancoast tumor of the left upper lung who presented to us for consideration of palliative radiation therapy for poorly controlled pain in his left shoulder and upper chest. He is now presenting 1 month post completion of treatment for followup visit. The patient presents today reporting that his pain is significantly improved. He is presently being seen by medical oncology and is undergoing treatment. REVIEW OF SYSTEMS: The patient's review of systems is positive for his pain, which has improved, but generally is otherwise noncontributory. He denies nausea, vomiting, fevers, chills, night sweats, diplopia, headaches, anxiety or depression, anorexia, weight loss, visual disturbances, chest pain, urinary or bowel difficulties, bone pain or neurological problems. PHYSICAL EXAMINATION: The patient is a chronically ill white male in no acute distress. HEENT exam is normocephalic, atraumatic. Extraocular movements are intact. There is no palpable cervical, supraclavicular, infraclavicular or axillary lymphadenopathy present. His lungs are clear to auscultation and percussion. His heart has regular rate and rhythm. His abdomen is benign with no splenomegaly, masses or tenderness. Skeletal examination reveals no tenderness to pressure or percussion of the bony skeleton. ASSESSMENT: The patient is clinically doing well at this time and is being followed and managed closely by his medical oncologist, Dr. Estella Gill. In light of this, I am discharging him from my followup except on a p.r.n. basis. cc: Cindy Yañez, MD Cristobal Gibbons, DO [facility] James Larson MD
== END ==
LOC: M ONCR 11:34
PROVIDERS: ATTEND Radiology Radiation Oncology
DX: C34.12 Malignant neoplasm of upper lobe, left bronchus or lung (principal)

== ENCOUNTER → 2019-06-06 | Outpatient (CLI) | payer MEDICARE ==
[~2019-06-06] MED LIST changes: +PROHANCE 279.3MG/ML 15ML VIAL (A9576) As Ordered ONE; +PROHANCE 279.3MG/ML 5ML VIAL (A9576) As Ordered ONE; +WARF-58 PO
--- NOTE | 2019-06-06 14:45 | REP ---
MRI BRAIN WITHOUT AND WITH IV CONTRAST: HISTORY: Lung carcinoma, question metastasis. Comparison head CT study November 20, 2018. TECHNIQUE: Axial and sagittal imaging planes are utilized for T1- and T2-weighted scans. Sequences include spin echo, fast spin echo, FLAIR, and diffusion weighted sequences. Gadolinium enhancement dose is 18 mL of intravenous ProHance. FINDINGS: No bony calvarial lesion is seen. Craniocervical junction and upper cervical cord are normal in appearance. Diffusion weighted scans show no evidence of free effusion. There is no evidence of intracranial mass lesion. There are minimal small vessel changes in the periventricular white matter. No extra-axial fluid collection is seen. No midline shift is observed. Postcontrast exam shows enhancement in normal vascular structures. No abnormal contrast enhancement is appreciated intracranially. IMPRESSION: There is no evidence of intracranial metastatic disease. Electronically Signed by Philip Maharaj MD 06/06/2019 02:52 P
== END ==
LOC: M RAD 11:32
PROVIDERS: ATTEND Radiology Radiation Oncology
DX: C34.12 Malignant neoplasm of upper lobe, left bronchus or lung (principal)
CPT/HCPCS: 70553; A9576

== ENCOUNTER → 2019-06-09 | Outpatient (CLI) | payer MEDICARE ==
[~2019-06-09] MED LIST changes: +GASTROGRAFIN SOLUTION 30ML (Q9963) As Ordered ONE; +ISOVUE-370 76% 100ML VIAL (Q9967) As Ordered ONE; -PROHANCE 279.3MG/ML 15ML VIAL (A9576) As Ordered ONE; -PROHANCE 279.3MG/ML 5ML VIAL (A9576) As Ordered ONE
--- NOTE | 2019-06-09 16:59 | REP ---
Clinical: Restaging lung cancer. Technique: Axial contrast enhanced images from the thoracic inlet to the upper abdomen with coronal and sagittal re-formations using 100 ml Isovue 370 intravenous contrast material. Comparison: 03/03/2019 Findings: Left apical mass appears to be slightly decreased in size from prior examination. There is an ill-defined linear area of infiltrate extending through the left upper lobe along with its small area of infiltrate in the apical left lower lobe represent new findings from prior examination. Evaluation of the right hemithorax demonstrates improved aeration with decreased areas of consolidation and the previously noted complex hydropneumothorax has resolved. Right -sided nodules and mass lesions likely obscured by prior consolidation and hydropneumothorax are now identified within the right middle lobe measuring roughly 5.1 cm maximal diameter and smaller neoplastic nodules measuring up to 2.2 cm maximal diameter are now visible. No significant pleural effusion. Mediastinal and hilar lymph nodes measure up to approximately 1.7 cm which may be slightly improved from prior examination. Thoracic aorta, pulmonary vasculature, and heart/pericardium are relatively normal / stable. Impression: 1. Mass in the left apex is subjectively decreased in size from prior examination. 2. New areas of ill-defined somewhat linear consolidation in the left upper lung zone and apical left lower lobe. 3. Significantly improved aeration to the right hemithorax and the previously noted complex right hydropneumothorax has completely resolved. Right lung now demonstrates a 5.1 cm mass and multiple metastatic nodules up to 2.2 cm maximal diameter primarily noted in the right middle lobe. Electronically Signed by Frederick Bryant MD 06/09/2019 04:51 P
--- NOTE | 2019-06-09 17:04 | REP ---
Clinical: Restaging lung cancer. Technique: Axial contrast enhanced images from the lung bases to the pubic symphysis oozing oral (per protocol) and 100 ml Isovue 370 intravenous contrast material with coronal and sagittal re-formations as well as delayed images of the abdomen. Comparison: 02/24/2019. Findings: Liver demonstrates stable septated cyst in the anterior segment right lobe measuring approximately 4 cm maximal diameter as well as stable smaller hypodensities in the very inferior right lobe measuring approximately 11 mm and 5 mm. No new hepatic lesions are identified. Mild splenomegaly remains stable without focal splenic lesion. Pancreas, gallbladder, bilateral adrenal glands and kidneys are essentially normal/stable. The enteric system is without obstruction or acute inflammatory process. Colonic diverticulosis noted without acute diverticulitis. Pelvis demonstrates grossly normal bladder and prostate/seminal vesicles although evaluation of the pelvis is significantly limited by metallic streak artifact from right hip replacement. No obvious ascites. Left para-aortic retroperitoneal lymph nodes appear to have increased from prior examination including a lymph node at the level of the left renal hilum now measuring 1.8 cm (image 60). No free air. Atherosclerotic changes to the aorta and vasculature noted without aneurysm or dissection. Musculoskeletal structures demonstrate degenerative changes without acute focal abnormality. Impression: 1. Hepatic hypodensities remain stable. No new hepatic lesion identified. 2. Stable splenomegaly without focal splenic lesion. 3. Moderately increased left para-aortic retroperitoneal lymph nodes measuring up to 1.8 cm require further investigation. 4. Diverticulosis without acute diverticulitis. Electronically Signed by Frederick Bryant MD 06/09/2019 04:55 P
== END ==
LOC: M RAD 14:07
PROVIDERS: ATTEND Internal Medicine Medical Oncology
DX: C34.90 Malignant neoplasm of unspecified part of unspecified bronchus or lung (principal); R93.89 Abnormal findings on diagnostic imaging of other specified body structures; R91.8 Other nonspecific abnormal finding of lung field; K76.89 Other specified diseases of liver; R16.1 Splenomegaly, not elsewhere classified; K57.30 Diverticulosis of large intestine without perforation or abscess without bleeding
CPT/HCPCS: 71260; 74177; Q9963; Q9967